=== PATIENT | male | born 2000 | race Caucasian/White ===

== ENCOUNTER 2020-06-24 17:06 | Inpatient (IN) | payer OTHER, SELFPAY ==
[2020-06-24 18:05] VITALS: BP 158/101; PULSE 113; RESP 20; TEMP 36; O2SAT 100; BMI 43.2
[2020-06-24 18:22] LABS: Glucose, Whole Blood > 600 mg/dL (60-115)
[2020-06-24 18:22] LABS: Glucose, Whole Blood > 600 mg/dL (60-115)
--- NOTE | 2020-06-24 19:16 | ED_ITS ---
HPI - General Adult General Chief complaint: General Medical Stated complaint: DIZZYNESS Time Seen by Provider: 06/24/20 19:10 Source: patient Mode of arrival: ambulatory Limitations: no limitations History of Present Illness MD complaint: high blood sugar Onset (ago): week(s) (2) Radiation: non-radiation Severity: moderate Relieving factors: none Exacerbating factors: none Associated symptoms: loss of appetite, malaise and other (polyuria, polydipsia, dry mouth, weakness, malaise, checked his BS at home 2 weeks ago with grandmother's machine 500) Related Data Home Medications Medication Instructions Recorded Confirmed No Known Home Meds 06/24/20 06/24/20 Allergies Allergy/AdvReac Type Severity Reaction Status Date / Time No Known Allergies Allergy Verified 06/24/20 21:43 Review of Systems Review of Systems: Constitutional : No Weight loss, No Fever, No Chills, pos Fatigue, pos Malaise ENT/Mouth : No sore throat, No Rhinorrhea Eyes: No Eye Pain, No Swelling, No Redness Cardiovascular : No Chest Pain, No SOB, No Dyspnea on Exertion, No Orthopnea, No Edema, No Palpitations Respiratory : No Cough, No Sputum, No Wheezing Gastrointestinal : pos Nausea, No Vomiting, No Diarrhea, No Constipation, No abdominal Pain, No Hematochezia, No Melena Genitourinary : No Dysuria, pos Urinary Frequency, No Hematuria, Musculoskeletal : No joint pain, No Myalgias, No Joint Swelling Skin : No Skin Lesions, No rash Neuro : No Weakness, No Numbness, No Dizziness, No Headache Psych : No Anxiety/Panic, No Depression Heme/Lymph: No Bruising, No Bleeding,No Lymphadenopathy Endocrine : pos Polyuria, pos Polydipsia All other systems reviewed and are negative [facility] Past Medical History Attestation statement: The following information was validated with the patient. Medical History No known health problems Social History Social History (Updated 06/24/20 @ 19:19 by Vivian Archer DO) Smoking Status: Never smoker Use of substances other than those prescribed or required for medical reasons: No Advance Directives: No Advance Directives Information Provided: No Physical Exam Vital Signs: Vital Signs: Last Vital Signs Temp 98.1 F 06/24/20 21:12 Pulse 100 06/25/20 00:31 Resp 18 06/25/20 00:31 BP 119/83 06/25/20 00:31 Pulse Ox 100 06/24/20 21:12 Body Mass Index 43.2 Appearance: Alert. Oriented X3. No acute distress. Eyes: Pupils equal, round and reactive to light. ENT: Pharynx normal. Neck: Normal inspection. Neck supple. CVS: Normal heart rate and rhythm. Pulses normal. Respiratory: No respiratory distress. Breath sounds normal. Abdomen: Soft and nontender. Back: pilonidal area 3cm draining cyst - no overlying cellulitis Skin: Skin warm and dry. Normal skin color. Normal skin turgor. Extremities: No lower extremity edema. No calf ttp Neuro: Oriented X 3. No motor deficit. No sensory deficit. Course Course Course Narrative: insulin gtt ordered given DKA will give IVF x 2L recheck chemistry in 2 hours on gtt - if cleared will admit to medicine for further management infection suspected at this time 953pm - cultures and zosyn ordered repeat chemistry ordered, on insulin gtt, given metoprolol for HTN chemistry improved, will dose with lantus and subcut insulin and take off drip AG still present hospitalist want patient to be sent to ICU will call Dr. Gipson for admission - ICU is full per [employer] [facility] [employer], patient is very close to being corrected at this time will keep in ICU x 2 more hours on drip and recheck chemistries, signed out to Dr. Jacobs Procedures Abscess I/D Site: other (pilonidal) Local Anesthetic: lidocaine 2% Amount of anesthesia used (mL): 5 Technique: needle aspiration and incised with blade Amount of fluid expressed (mL): 10 Sent for culture/gram staining?: No Irrigation: Yes Packing used?: none Medical Decision Making MDM Narrative Medical decision making narrative: 20 yo male with no PMH here with diabetic symptoms x 2 weeks, BS > 500 at home will need labs, IVF, IV insulin, also has draining uninfected appearing pilonidal cyst - will annie during visit may need labetalol given HR and BP Lab Data Result diagrams: 06/24/20 19:28 06/25/20 00:02 Labs: Lab Results 06/24/20 06/24/20 06/24/20 Range/Units 18:15 18:17 19:27 WBC (4.8-10.8) X10*3/uL RBC (4.60-5.80) X10*6/uL Hgb (14.0-18.0) g/dl Hct (42-52) % MCV (80-98) fL MCH (27.0-33.0) pg MCHC (31.0-36.0) g/dl RDW (11.0-16.0) % Plt Count (160-400) X10*3/uL MPV (9.4-12.4) fL Immature Gran % (Auto) (0.0-0.4) % Neut % (Auto) (45-73) % Lymph % (Auto) (20-40) % Foster % (Auto) (2-11) % Eos % (Auto) (0-4) % Baso % (Auto) (0-2) % Lymph # (Auto) (1.2-4.9) X10*3/uL [place] # (Auto) (0.1-1.2) X10*3/uL Eos # (Auto) (0.0-0.4) X10*3/uL Baso # (Auto) (0.0-0.2) X10*3/uL Abs Immat Gran (auto) (0.00-0.03) X10*3/uL Absolute Neuts (auto) (2.0-8.3) X10*3/uL Absolute Nucleated RBC (0.0-0.012) X10*3/uL Nucleated RBC % (auto) (0.0-0.2) /100WBC Hold Blue Top VBG pH (7.32-7.43) VBG pCO2 mmhg VBG pO2 mmhg VBG HCO3 mmol/L VBG O2 Saturation % VBG Base Excess mmol/L Sodium 129 L (135-145) mmol/L Potassium 4.6 (3.3-5.1) mmol/l Chloride 97 (96-108) mmol/L Carbon Dioxide 12 L (22-29) mmol/L Anion Gap 25 H (12-20) BUN 11 (9-16) mg/dL Creatinine 1.91 H (0.5-1.4) mg/dL Estim Creat Clear Calc 87.0 Estimated GFR 44 POC Glucose > 600 H* > 600 H* (60-115) mg/dL Random Glucose 644 H* (60-115) mg/dL Lactic Acid (0.5-2.0) mmol/L Calcium 9.4 (8.4-10.2) mg/dL Total Bilirubin 0.7 (0.0-1.0) mg/dL AST 23 (5-37) U/L ALT 40 (0-40) U/L Alkaline Phosphatase 199 H (39-117) U/L Total Protein 8.4 H (6.5-8.0) g/dL Albumin 4.9 (3.5-5.0) g/dL Lipase 12 (8-78) U/L Urine Color Urine Appearance Urine pH (5.0-8.0) Ur Specific [place] (1.005-1.025) Urine Protein (NEG-TRACE) MG/DL Urine Glucose (UA) (NEG) MG/DL Urine Ketones (NEG) MG/DL Urine Blood (NEG) Urine Nitrite (NEG) Ur Leukocyte Esterase (NEG) Urine RBC (0) /HPF Urine WBC (0-4) /HPF Ur Squamous Epith Cells /LPF Urine Bacteria /LPF Urine Test (NEGATIVE) Acetone, Qual Moderate H (Negative) COVID-19 (BRE) (Negative) COVID-19 Clin Com 06/24/20 06/24/20 06/24/20 Range/Units 19:27 19:27 19:28 WBC 9.8 (4.8-10.8) X10*3/uL RBC 5.37 (4.60-5.80) X10*6/uL Hgb 15.4 (14.0-18.0) g/dl Hct 46.0 (42-52) % MCV 85.7 (80-98) fL MCH 28.7 (27.0-33.0) pg MCHC 33.5 (31.0-36.0) g/dl RDW 13.7 (11.0-16.0) % Plt Count 297 (160-400) X10*3/uL MPV 12.1 (9.4-12.4) fL Immature Gran % (Auto) 1.5 H (0.0-0.4) % Neut % (Auto) 75.3 H (45-73) % Lymph % (Auto) 15.4 L (20-40) % Foster % (Auto) 7.3 (2-11) % Eos % (Auto) 0.2 (0-4) % Baso % (Auto) 0.3 (0-2) % Lymph # (Auto) 1.5 (1.2-4.9) X10*3/uL Foster # (Auto) 0.7 (0.1-1.2) X10*3/uL Eos # (Auto) 0.0 (0.0-0.4) X10*3/uL Baso # (Auto) 0.0 (0.0-0.2) X10*3/uL Abs Immat Gran (auto) 0.15 H (0.00-0.03) X10*3/uL Absolute Neuts (auto) 7.3 (2.0-8.3) X10*3/uL Absolute Nucleated RBC 0.000 (0.0-0.012) X10*3/uL Nucleated RBC % (auto) 0.0 (0.0-0.2) /100WBC Hold Blue Top VBG pH 7.19 L* (7.32-7.43) VBG pCO2 30 mmhg VBG pO2 76 mmhg VBG HCO3 11 mmol/L VBG O2 Saturation 93.8 % VBG Base Excess -15.3 mmol/L Sodium (135-145) mmol/L Potassium (3.3-5.1) mmol/l Chloride (96-108) mmol/L Carbon Dioxide (22-29) mmol/L Anion Gap (12-20) BUN (9-16) mg/dL Creatinine (0.5-1.4) mg/dL Estim Creat Clear Calc Estimated GFR POC Glucose (60-115) mg/dL Random Glucose (60-115) mg/dL Lactic Acid 1.7 (0.5-2.0) mmol/L Calcium (8.4-10.2) mg/dL Total Bilirubin (0.0-1.0) mg/dL AST (5-37) U/L ALT (0-40) U/L Alkaline Phosphatase (39-117) U/L Total Protein (6.5-8.0) g/dL Albumin (3.5-5.0) g/dL Lipase (8-78) U/L Urine Color Urine Appearance Urine pH (5.0-8.0) Ur Specific [place] (1.005-1.025) Urine Protein (NEG-TRACE) MG/DL Urine Glucose (UA) (NEG) MG/DL Urine Ketones (NEG) MG/DL Urine Blood (NEG) Urine Nitrite (NEG) Ur Leukocyte Esterase (NEG) Urine RBC (0) /HPF Urine WBC (0-4) /HPF Ur Squamous Epith Cells /LPF Urine Bacteria /LPF Urine Test (NEGATIVE) Acetone, Qual (Negative) COVID-19 (BRE) (Negative) COVID-19 Clin Com 06/24/20 06/24/20 06/24/20 Range/Units 19:28 19:50 20:53 WBC (4.8-10.8) X10*3/uL RBC (4.60-5.80) X10*6/uL Hgb (14.0-18.0) g/dl Hct (42-52) % MCV (80-98) fL MCH (27.0-33.0) pg MCHC (31.0-36.0) g/dl RDW (11.0-16.0) % Plt Count (160-400) X10*3/uL MPV (9.4-12.4) fL Immature Gran % (Auto) (0.0-0.4) % Neut % (Auto) (45-73) % Lymph % (Auto) (20-40) % Foster % (Auto) (2-11) % Eos % (Auto) (0-4) % Baso % (Auto) (0-2) % Lymph # (Auto) (1.2-4.9) X10*3/uL [place] # (Auto) (0.1-1.2) X10*3/uL Eos # (Auto) (0.0-0.4) X10*3/uL Baso # (Auto) (0.0-0.2) X10*3/uL Abs Immat Gran (auto) (0.00-0.03) X10*3/uL Absolute Neuts (auto) (2.0-8.3) X10*3/uL Absolute Nucleated RBC (0.0-0.012) X10*3/uL Nucleated RBC % (auto) (0.0-0.2) /100WBC Hold Blue Top SEE NOTE VBG pH (7.32-7.43) VBG pCO2 mmhg VBG pO2 mmhg VBG HCO3 mmol/L VBG O2 Saturation % VBG Base Excess mmol/L Sodium (135-145) mmol/L Potassium (3.3-5.1) mmol/l Chloride (96-108) mmol/L Carbon Dioxide (22-29) mmol/L Anion Gap (12-20) BUN (9-16) mg/dL Creatinine (0.5-1.4) mg/dL Estim Creat Clear Calc Estimated GFR POC Glucose 500 H* (60-115) mg/dL Random Glucose (60-115) mg/dL Lactic Acid (0.5-2.0) mmol/L Calcium (8.4-10.2) mg/dL Total Bilirubin (0.0-1.0) mg/dL AST (5-37) U/L ALT (0-40) U/L Alkaline Phosphatase (39-117) U/L Total Protein (6.5-8.0) g/dL Albumin (3.5-5.0) g/dL Lipase (8-78) U/L Urine Color YELLOW Urine Appearance CLEAR Urine pH 6.0 (5.0-8.0) Ur Specific [place] 1.015 (1.005-1.025) Urine Protein NEG (NEG-TRACE) MG/DL Urine Glucose (UA) >=1000 H (NEG) MG/DL Urine Ketones >=80 (NEG) MG/DL Urine Blood 1+ H (NEG) Urine Nitrite NEG (NEG) Ur Leukocyte Esterase NEG (NEG) Urine RBC 1-4 (0) /HPF Urine WBC 1-4 (0-4) /HPF Ur Squamous Epith Cells 1+ /LPF Urine Bacteria 1+ /LPF Urine Test NEGATIVE (NEGATIVE) Acetone, Qual (Negative) COVID-19 (BRE) (Negative) COVID-19 Clin Com 06/24/20 06/24/20 06/24/20 Range/Units 21:12 21:33 22:07 WBC (4.8-10.8) X10*3/uL RBC (4.60-5.80) X10*6/uL Hgb (14.0-18.0) g/dl Hct (42-52) % MCV (80-98) fL MCH (27.0-33.0) pg MCHC (31.0-36.0) g/dl RDW (11.0-16.0) % Plt Count (160-400) X10*3/uL MPV (9.4-12.4) fL Immature Gran % (Auto) (0.0-0.4) % Neut % (Auto) (45-73) % Lymph % (Auto) (20-40) % Foster % (Auto) (2-11) % Eos % (Auto) (0-4) % Baso % (Auto) (0-2) % Lymph # (Auto) (1.2-4.9) X10*3/uL [place] # (Auto) (0.1-1.2) X10*3/uL Eos # (Auto) (0.0-0.4) X10*3/uL Baso # (Auto) (0.0-0.2) X10*3/uL Abs Immat Gran (auto) (0.00-0.03) X10*3/uL Absolute Neuts (auto) (2.0-8.3) X10*3/uL Absolute Nucleated RBC (0.0-0.012) X10*3/uL Nucleated RBC % (auto) (0.0-0.2) /100WBC Hold Blue Top VBG pH (7.32-7.43) VBG pCO2 mmhg VBG pO2 mmhg VBG HCO3 mmol/L VBG O2 Saturation % VBG Base Excess mmol/L Sodium (135-145) mmol/L Potassium (3.3-5.1) mmol/l Chloride (96-108) mmol/L Carbon Dioxide (22-29) mmol/L Anion Gap (12-20) BUN (9-16) mg/dL Creatinine (0.5-1.4) mg/dL Estim Creat Clear Calc Estimated GFR POC Glucose 429 H* 355 H* (60-115) mg/dL Random Glucose (60-115) mg/dL Lactic Acid (0.5-2.0) mmol/L Calcium (8.4-10.2) mg/dL Total Bilirubin (0.0-1.0) mg/dL AST (5-37) U/L ALT (0-40) U/L Alkaline Phosphatase (39-117) U/L Total Protein (6.5-8.0) g/dL Albumin (3.5-5.0) g/dL Lipase (8-78) U/L Urine Color Urine Appearance Urine pH (5.0-8.0) Ur Specific [place] (1.005-1.025) Urine Protein (NEG-TRACE) MG/DL Urine Glucose (UA) (NEG) MG/DL Urine Ketones (NEG) MG/DL Urine Blood (NEG) Urine Nitrite (NEG) Ur Leukocyte Esterase (NEG) Urine RBC (0) /HPF Urine WBC (0-4) /HPF Ur Squamous Epith Cells /LPF Urine Bacteria /LPF Urine Test (NEGATIVE) Acetone, Qual (Negative) COVID-19 (BRE) Negative (Negative) COVID-19 Clin Com See Note 06/24/20 06/24/20 06/24/20 Range/Units 22:35 23:04 23:37 WBC (4.8-10.8) X10*3/uL RBC (4.60-5.80) X10*6/uL Hgb (14.0-18.0) g/dl Hct (42-52) % MCV (80-98) fL MCH (27.0-33.0) pg MCHC (31.0-36.0) g/dl RDW (11.0-16.0) % Plt Count (160-400) X10*3/uL MPV (9.4-12.4) fL Immature Gran % (Auto) (0.0-0.4) % Neut % (Auto) (45-73) % Lymph % (Auto) (20-40) % Foster % (Auto) (2-11) % Eos % (Auto) (0-4) % Baso % (Auto) (0-2) % Lymph # (Auto) (1.2-4.9) X10*3/uL [place] # (Auto) (0.1-1.2) X10*3/uL Eos # (Auto) (0.0-0.4) X10*3/uL Baso # (Auto) (0.0-0.2) X10*3/uL Abs Immat Gran (auto) (0.00-0.03) X10*3/uL Absolute Neuts (auto) (2.0-8.3) X10*3/uL Absolute Nucleated RBC (0.0-0.012) X10*3/uL Nucleated RBC % (auto) (0.0-0.2) /100WBC Hold Blue Top VBG pH (7.32-7.43) VBG pCO2 mmhg VBG pO2 mmhg VBG HCO3 mmol/L VBG O2 Saturation % VBG Base Excess mmol/L Sodium (135-145) mmol/L Potassium (3.3-5.1) mmol/l Chloride (96-108) mmol/L Carbon Dioxide (22-29) mmol/L Anion Gap (12-20) BUN (9-16) mg/dL Creatinine (0.5-1.4) mg/dL Estim Creat Clear Calc Estimated GFR POC Glucose 286 H 289 H 272 H (60-115) mg/dL Random Glucose (60-115) mg/dL Lactic Acid (0.5-2.0) mmol/L Calcium (8.4-10.2) mg/dL Total Bilirubin (0.0-1.0) mg/dL AST (5-37) U/L ALT (0-40) U/L Alkaline Phosphatase (39-117) U/L Total Protein (6.5-8.0) g/dL Albumin (3.5-5.0) g/dL Lipase (8-78) U/L Urine Color Urine Appearance Urine pH (5.0-8.0) Ur Specific [place] (1.005-1.025) Urine Protein (NEG-TRACE) MG/DL Urine Glucose (UA) (NEG) MG/DL Urine Ketones (NEG) MG/DL Urine Blood (NEG) Urine Nitrite (NEG) Ur Leukocyte Esterase (NEG) Urine RBC (0) /HPF Urine WBC (0-4) /HPF Ur Squamous Epith Cells /LPF Urine Bacteria /LPF Urine Test (NEGATIVE) Acetone, Qual (Negative) COVID-19 (BRE) (Negative) COVID-19 Clin Com 06/25/20 Range/Units 00:02 WBC (4.8-10.8) X10*3/uL RBC (4.60-5.80) X10*6/uL Hgb (14.0-18.0) g/dl Hct (42-52) % MCV (80-98) fL MCH (27.0-33.0) pg MCHC (31.0-36.0) g/dl RDW (11.0-16.0) % Plt Count (160-400) X10*3/uL MPV (9.4-12.4) fL Immature Gran % (Auto) (0.0-0.4) % Neut % (Auto) (45-73) % Lymph % (Auto) (20-40) % Foster % (Auto) (2-11) % Eos % (Auto) (0-4) % Baso % (Auto) (0-2) % Lymph # (Auto) (1.2-4.9) X10*3/uL [place] # (Auto) (0.1-1.2) X10*3/uL Eos # (Auto) (0.0-0.4) X10*3/uL Baso # (Auto) (0.0-0.2) X10*3/uL Abs Immat Gran (auto) (0.00-0.03) X10*3/uL Absolute Neuts (auto) (2.0-8.3) X10*3/uL Absolute Nucleated RBC (0.0-0.012) X10*3/uL Nucleated RBC % (auto) (0.0-0.2) /100WBC Hold Blue Top VBG pH (7.32-7.43) VBG pCO2 mmhg VBG pO2 mmhg VBG HCO3 mmol/L VBG O2 Saturation % VBG Base Excess mmol/L Sodium 137 (135-145) mmol/L Potassium 4.0 (3.3-5.1) mmol/l Chloride 105 (96-108) mmol/L Carbon Dioxide 14 L (22-29) mmol/L Anion Gap 22 H (12-20) BUN 9 (9-16) mg/dL Creatinine 1.57 H (0.5-1.4) mg/dL Estim Creat Clear Calc 105.8 Estimated GFR 56 POC Glucose (60-115) mg/dL Random Glucose 329 H D (60-115) mg/dL Lactic Acid (0.5-2.0) mmol/L Calcium 8.8 D (8.4-10.2) mg/dL Total Bilirubin (0.0-1.0) mg/dL AST (5-37) U/L ALT (0-40) U/L Alkaline Phosphatase (39-117) U/L Total Protein (6.5-8.0) g/dL Albumin (3.5-5.0) g/dL Lipase (8-78) U/L Urine Color Urine Appearance Urine pH (5.0-8.0) Ur Specific [place] (1.005-1.025) Urine Protein (NEG-TRACE) MG/DL Urine Glucose (UA) (NEG) MG/DL Urine Ketones (NEG) MG/DL Urine Blood (NEG) Urine Nitrite (NEG) Ur Leukocyte Esterase (NEG) Urine RBC (0) /HPF Urine WBC (0-4) /HPF Ur Squamous Epith Cells /LPF Urine Bacteria /LPF Urine Test (NEGATIVE) Acetone, Qual (Negative) COVID-19 (BRE) (Negative) COVID-19 Clin Com ECG Data Attestation: I personally reviewed and interpreted this ECG as follows: Interpretation: Rate: 121 Rhythm: sinus tachycardia [place]: normal Normal P waves. Normal KIAN. Normal QRS complex. ST T wave : nonspecific qTC: normal prior studies: no acute ischemia The study has been interpreted contemporaneously by me. . Critical Care Time Critical Care Time Critical Care Time: Yes Total Critical Care Time: 60 Attestation: insulin gtt, recheck labs I attest to this time spent taking care of the patient Discharge Plan Discharge Clinical Impression: Infected pilonidal cyst Acute renal failure Qualifiers: Acute renal failure type: unspecified Qualified Code(s): N17.9 - Acute kidney failure, unspecified DKA (diabetic ketoacidoses) Qualifiers: Diabetes mellitus type: type 2 Diabetes mellitus complication detail: without coma Qualified Code(s): E11.10 - Type 2 diabetes mellitus with ketoacidosis without coma Hypertension Qualifiers: Hypertension type: unspecified Qualified Code(s): I10 - Essential (primary) hypertension Patient Disposition: Admitted As Inpatient
[2020-06-24 19:36] LABS: MANUAL DIFF FLAG NO
[2020-06-24 19:37] LABS: Basophils Percent Auto 0.3 % (0-2); Eosinophils Percent Auto 0.2 % (0-4); Hemoglobin 15.4 g/dl (14.0-18.0); Imm Gran Abs Auto 0.15 X10*3/uL (0.00-0.03); Imm Gran Pct Auto 1.5 % (0.0-0.4); Lymphocytes Absolute Auto 1.5 X10*3/uL (1.2-4.9); Lymphocytes Percent Auto 15.4 % (20-40); Mean Corpuscular HGB Conc 33.5 g/dl (31.0-36.0); Mean Corpuscular Hemoglobin 28.7 pg (27.0-33.0); Mean Corpuscular Volume 85.7 fL (80-98); Mean Platelet Volume 12.1 fL (9.4-12.4); Monocytes Absolute Auto 0.7 X10*3/uL (0.1-1.2); Monocytes Percent Auto 7.3 % (2-11); Neutrophils Absolute Auto 7.3 X10*3/uL (2.0-8.3); Neutrophils Percent Auto 75.3 % (45-73); Platelet Count 297 X10*3/uL (160-400); Red Blood Count 5.37 X10*6/uL (4.60-5.80); Red Cell Distribution Width 13.7 % (11.0-16.0); White Blood Count 9.8 X10*3/uL (4.8-10.8)
[2020-06-24 19:39] LABS: Base Excess VBG -15.3 mmol/L; HCO3 VBG 11 mmol/L; Oxygen Saturation VBG 93.8 %; PCO2 VBG 30 mmhg; PO2 VBG 76 mmhg
[2020-06-24 19:40] LABS: Blood Gas Serial # 5396
[2020-06-24 19:42] LABS: pH VBG 7.19 (7.32-7.43)
[2020-06-24 19:47] VITALS: BP 157/101; PULSE 120; RESP 16; TEMP 36.9; O2SAT 97
[2020-06-24 20:02] LABS: Glucose Urine UA >=1000 MG/DL (NEG); Leukocyte Esterase Urine NEG (NEG); Nitrite Urine NEG (NEG); Specific Gravity - Urine 1.015 (1.005-1.025); Urine Blood 1+ (NEG); Urine Ketones >=80 MG/DL (NEG); Urine Protein NEG (NEG-TRACE)
[2020-06-24 20:03] LABS: Appearance Urine CLEAR; Color Urine YELLOW
[2020-06-24 20:04] LABS: Lactic Acid 1.7 mmol/L (0.5-2.0)
[2020-06-24] MEDS: 0.9 % Sodium Chloride 1,000 ML 999 ML IVCONT ×3 (20:09→21:05)
[2020-06-24 20:11] LABS: UPreg QC Valid YES; Urine Pregnancy NEGATIVE (NEGATIVE)
[2020-06-24 20:19] LABS: Bacteria Urine 1+ /LPF; Squamous Epithelial Cell Urine 1+ /LPF
[2020-06-24 20:29] LABS: Alanine Aminotransferase 40 U/L (0-40); Albumin Level 4.9 g/dL (3.5-5.0); Alkaline Phosphatase 199 U/L (39-117); Anion Gap 25 (12-20); Aspartate Amino Transferase 23 U/L (5-37); Bilirubin Total 0.7 mg/dL (0.0-1.0); Blood Urea Nitrogen 11 mg/dL (9-16); Calcium 9.4 mg/dL (8.4-10.2); Carbon Dioxide 12 mmol/L (22-29); Chloride 97 mmol/L (96-108); Estimated Glomerular Filt Rate 44; Glucose Random 644 mg/dL (60-115); Lipase 12 U/L (8-78); Potassium 4.6 mmol/l (3.3-5.1); Sodium 129 mmol/L (135-145); Total Protein 8.4 g/dL (6.5-8.0)
[2020-06-24] MEDS: Insulin Regular, Human 100 UNIT/ML 3 ML VIAL 10 UNIT IVPUSH (20:32)
--- NOTE | 2020-06-24 20:41 | ECG_ITS ---
Test Reason : HYPERGLYCEMIA' Blood Pressure : / mmHG Vent. Rate : 121 BPM Atrial Rate : 121 BPM P-R Int : 158 ms QRS Dur : 084 ms QT Int : 308 ms P-R-T Axes : 064 049 004 degrees QTc Int : 437 ms Sinus tachycardia Nonspecific ST and T wave abnormality Abnormal ECG No previous ECGs available Referred By: Vivian Archer Electronically Signed By:BHAVANI ROJO MD
[2020-06-24 20:50] LABS: Acetone, serum QL Moderate (Negative)
[2020-06-24] MEDS: Insulin Regular/NS 100 UNIT/100 ML PLAST..BAG 10 UNIT IVCONT (21:00)
--- NOTE | 2020-06-24 21:02 | PC.NURSE ---
POC 500 mg/dl. Insulin drip started per MD request @ 10 units/hr. Unable to scan insulin into MAR, charge master coordinator aware.
[2020-06-24 21:12] VITALS: BP 162/102; PULSE 124; RESP 24; TEMP 36.7; O2SAT 100
[2020-06-24 21:38] VITALS: BP 162/102; PULSE 123
[2020-06-24] MEDS: Metoprolol Tartrate 25 MG TABLET PO (21:38)
--- NOTE | 2020-06-24 21:39 | PC.NURSE ---
Pt medicated per EMAR with Metoprolol. Per MD to decreased insulin to 5 units/hr. Med Rec completed with pt, per pt, no home meds noted.
[2020-06-24 21:55] LABS: Glucose, Whole Blood 429 mg/dL (60-115)
[2020-06-24 21:55] LABS: Glucose, Whole Blood 500 mg/dL (60-115)
[2020-06-24 21:59] LABS: COVID-19 Test Negative (Negative)
[2020-06-24 22:12] LABS: Glucose, Whole Blood 355 mg/dL (60-115)
[2020-06-24] MEDS: Lidocaine 4 % Cream KIT 1 APPL TOPICAL (22:16)
[2020-06-24] MEDS: Piperacillin Sodium/Tazobactam 3.375 GM in 0.9 % Sodium Chloride 50 ML IV (22:34)
--- NOTE | 2020-06-24 22:35 | PC.NURSE ---
[place] le[place], BCX drawn previously. POC 286 mg/dl. Pt resting comfortably, talking on phone in NAD.
--- NOTE | 2020-06-24 22:41 | PC.NURSE ---
Pt suddenly vomiting multiple times, medicated with Zofran. MD at bedside, verbal order to decrease Insulin drip to 2.5 units/hr. VSS. Continue to monitor.
[2020-06-24 22:42] VITALS: BP 131/97; PULSE 126; RESP 20
[2020-06-24] MEDS: ondansetron HCL 4 MG/2 ML VIAL IVPUSH (22:46)
--- NOTE | 2020-06-24 23:38 | PC.NURSE ---
at bedside of I&D of cyst.
--- NOTE | 2020-06-24 23:39 | PC.NURSE ---
Lido 1% not given as it was not loaded in pyxis. Verbal order by MD for Lido 2% to be used for I&D.
[2020-06-25] VITALS (10 sets, daily range): BP systolic 115–151; BP diastolic 58–87; PULSE 82–114; RESP 14–20; TEMP 36.2–36.9; O2SAT 96–100
--- NOTE | 2020-06-25 00:05 | PC.NURSE ---
POC increased to 301, per MD to increase the insulin drip to 5 units/hr.
--- NOTE | 2020-06-25 00:06 | PC.NURSE ---
Repeat chemistry obtained and sent as it was not obtained previously.
[2020-06-25 00:09] LABS: Glucose, Whole Blood 289 mg/dL (60-115)
[2020-06-25 00:09] LABS: Glucose, Whole Blood 272 mg/dL (60-115)
[2020-06-25 00:09] LABS: Glucose, Whole Blood 286 mg/dL (60-115)
[2020-06-25 01:01] LABS: Anion Gap 22 (12-20); Blood Urea Nitrogen 9 mg/dL (9-16); Calcium 8.8 mg/dL (8.4-10.2); Carbon Dioxide 14 mmol/L (22-29); Chloride 105 mmol/L (96-108); Creatinine Clr Calc Pharmacy 105.8; Estimated Glomerular Filt Rate 56; Glucose Random 329 mg/dL (60-115); Sodium 137 mmol/L (135-145)
--- NOTE | 2020-06-25 01:16 | PC.NURSE ---
POC 287 mg/dl. Per MD melia LOVELL drip. Pt aware of plan for SC insulin, awaiting bed assignment.
[2020-06-25] MEDS: Insulin Lispro 100 UNIT/ML 3 ML VIAL SUBCUT ×4 (01:20→21:24)
[2020-06-25] MEDS: Insulin Glargine,Hum.rec.anlog 100 UNIT/ML 10 ML VIAL 20 UNIT SUBCUT (01:20)
--- NOTE | 2020-06-25 01:22 | PC.NURSE ---
Pt medicated with Insulin per EMAR.
--- NOTE | 2020-06-25 01:26 | PC.NURSE ---
Per MD to restart Insulin drip @ 2.5 u/hr. Pt unable to go to [facility] due to gap. Per MD, plan for ICU. Pt resting in bed, denies pain/discomfort. Continue to monitor.
[2020-06-25] MEDS: 0.9 % Sodium Chloride 1,000 ML 999 ML IVCONT (01:37)
--- NOTE | 2020-06-25 01:38 | PC.NURSE ---
IVF infusing per EMAR. echocardiography tech to obtain VBG.
[2020-06-25 02:01] LABS: Glucose, Whole Blood 287 mg/dL (60-115)
[2020-06-25 02:01] LABS: Glucose, Whole Blood 301 mg/dL (60-115)
[2020-06-25 02:01] LABS: Glucose, Whole Blood 292 mg/dL (60-115)
[2020-06-25 02:01] LABS: Glucose, Whole Blood 247 mg/dL (60-115)
[2020-06-25 02:15] LABS: PCO2 VBG 30 mmhg; PO2 VBG 104 mmhg
[2020-06-25 02:16] LABS: Base Excess VBG -10.8 mmol/L; HCO3 VBG 14 mmol/L; Oxygen Saturation VBG 97.8 %
[2020-06-25] MEDS: Dextrose 5 % and 0.45 % NaCl 1,000 ML 100 ML IVCONT (02:20)
--- NOTE | 2020-06-25 02:22 | PC.NURSE ---
D51/2 NS hung per EMAR. Pt aware of plan to redraw labs at 0320.
[2020-06-25 02:28] LABS: Glucose, Whole Blood 258 mg/dL (60-115)
[2020-06-25 03:10] LABS: Glucose, Whole Blood 231 mg/dL (60-115)
--- NOTE | 2020-06-25 03:21 | PC.NURSE ---
technology methodology consultant at bedside to obtain repeat bloodwork.
[2020-06-25 03:34] LABS: Base Excess VBG -10.5 mmol/L; HCO3 VBG 14 mmol/L; Oxygen Saturation VBG 96.1 %; PCO2 VBG 30 mmhg; PO2 VBG 83 mmhg
--- NOTE | 2020-06-25 03:51 | PC.NURSE ---
Insulin drip DCed per verbal order by MD as it had been 2 hours since Lantus was administered. Repeat POC 247 mg/dl. MD aware. Pt ambulatory in the halls with a mandujano/steady gait. Nnoadherent dressing applied to pilonidal cyst. Continue to monitor.
[2020-06-25 03:58] LABS: Anion Gap 19 (12-20); Blood Urea Nitrogen 8 mg/dL (9-16); Calcium 8.8 mg/dL (8.4-10.2); Carbon Dioxide 14 mmol/L (22-29); Chloride 106 mmol/L (96-108); Estimated Glomerular Filt Rate > 60; Glucose Random 240 mg/dL (60-115); Potassium 3.8 mmol/l (3.3-5.1); Sodium 135 mmol/L (135-145)
--- NOTE | 2020-06-25 04:25 | ED_ITS ---
HPI - General Adult General Chief complaint: General Medical Stated complaint: DIZZYNESS Time Seen by Provider: 06/24/20 19:10 Source: patient Mode of arrival: ambulatory Limitations: no limitations History of Present Illness Relieving factors: none Exacerbating factors: none Associated symptoms: loss of appetite, malaise and other (polyuria, polydipsia, dry mouth, weakness, malaise, checked his BS at home 2 weeks ago with grandmother's machine 500) Related Data Home Medications Medication Instructions Recorded Confirmed No Known Home Meds 06/24/20 06/24/20 Allergies Allergy/AdvReac Type Severity Reaction Status Date / Time No Known Allergies Allergy Verified 06/24/20 21:43 [facility] Past Medical History Medical History No known health problems Social History Social History (Updated 06/24/20 @ 19:19 by Vivian Archer DO) Smoking Status: Never smoker Use of substances other than those prescribed or required for medical reasons: No Advance Directives: No Advance Directives Information Provided: No Physical Exam Vital Signs: Vital Signs: Last Vital Signs Temp 98.0 F 06/25/20 01:55 Pulse 97 06/25/20 01:55 Resp 18 06/25/20 01:55 BP 137/87 06/25/20 01:55 Pulse Ox 98 06/25/20 01:55 Body Mass Index 43.2 Medical Decision Making MDM Narrative Medical decision making narrative: Patient signed out to me. 20-year-old male with new onset diabetes. Diagnosed with DKA. Patient was started and maintained on insulin drip. Throughout ER stay were able to close his gap and. IV insulin drip. Patient to be admitted for further evaluation Lab Data Result diagrams: 06/24/20 19:28 06/25/20 03:23 Labs: Lab Results 06/24/20 06/24/20 06/24/20 Range/Units 18:15 18:17 19:27 WBC (4.8-10.8) X10*3/uL RBC (4.60-5.80) X10*6/uL Hgb (14.0-18.0) g/dl Hct (42-52) % MCV (80-98) fL MCH (27.0-33.0) pg MCHC (31.0-36.0) g/dl RDW (11.0-16.0) % Plt Count (160-400) X10*3/uL MPV (9.4-12.4) fL Immature Gran % (Auto) (0.0-0.4) % Neut % (Auto) (45-73) % Lymph % (Auto) (20-40) % [place] % (Auto) (2-11) % Eos % (Auto) (0-4) % Baso % (Auto) (0-2) % Lymph # (Auto) (1.2-4.9) X10*3/uL [place] # (Auto) (0.1-1.2) X10*3/uL Eos # (Auto) (0.0-0.4) X10*3/uL Baso # (Auto) (0.0-0.2) X10*3/uL Abs Immat Gran (auto) (0.00-0.03) X10*3/uL Absolute Neuts (auto) (2.0-8.3) X10*3/uL Absolute Nucleated RBC (0.0-0.012) X10*3/uL Nucleated RBC % (auto) (0.0-0.2) /100WBC Hold Blue Top VBG pH (7.32-7.43) VBG pCO2 mmhg VBG pO2 mmhg VBG HCO3 mmol/L VBG O2 Saturation % VBG Base Excess mmol/L Sodium 129 L (135-145) mmol/L Potassium 4.6 (3.3-5.1) mmol/l Chloride 97 (96-108) mmol/L Carbon Dioxide 12 L (22-29) mmol/L Anion Gap 25 H (12-20) BUN 11 (9-16) mg/dL Creatinine 1.91 H (0.5-1.4) mg/dL Estim Creat Clear Calc 87.0 Estimated GFR 44 POC Glucose > 600 H* > 600 H* (60-115) mg/dL Random Glucose 644 H* (60-115) mg/dL Lactic Acid (0.5-2.0) mmol/L Calcium 9.4 (8.4-10.2) mg/dL Total Bilirubin 0.7 (0.0-1.0) mg/dL AST 23 (5-37) U/L ALT 40 (0-40) U/L Alkaline Phosphatase 199 H (39-117) U/L Total Protein 8.4 H (6.5-8.0) g/dL Albumin 4.9 (3.5-5.0) g/dL Lipase 12 (8-78) U/L Urine Color Urine Appearance Urine pH (5.0-8.0) Ur Specific [place] (1.005-1.025) Urine Protein (NEG-TRACE) MG/DL Urine Glucose (UA) (NEG) MG/DL Urine Ketones (NEG) MG/DL Urine Blood (NEG) Urine Nitrite (NEG) Ur Leukocyte Esterase (NEG) Urine RBC (0) /HPF Urine WBC (0-4) /HPF Ur Squamous Epith Cells /LPF Urine Bacteria /LPF Urine Test (NEGATIVE) Acetone, Qual Moderate H (Negative) COVID-19 (BRE) (Negative) COVID-19 Clin Com 06/24/20 06/24/20 06/24/20 Range/Units 19:27 19:27 19:28 WBC 9.8 (4.8-10.8) X10*3/uL RBC 5.37 (4.60-5.80) X10*6/uL Hgb 15.4 (14.0-18.0) g/dl Hct 46.0 (42-52) % MCV 85.7 (80-98) fL MCH 28.7 (27.0-33.0) pg MCHC 33.5 (31.0-36.0) g/dl RDW 13.7 (11.0-16.0) % Plt Count 297 (160-400) X10*3/uL MPV 12.1 (9.4-12.4) fL Immature Gran % (Auto) 1.5 H (0.0-0.4) % Neut % (Auto) 75.3 H (45-73) % Lymph % (Auto) 15.4 L (20-40) % [place] % (Auto) 7.3 (2-11) % Eos % (Auto) 0.2 (0-4) % Baso % (Auto) 0.3 (0-2) % Lymph # (Auto) 1.5 (1.2-4.9) X10*3/uL [place] # (Auto) 0.7 (0.1-1.2) X10*3/uL Eos # (Auto) 0.0 (0.0-0.4) X10*3/uL Baso # (Auto) 0.0 (0.0-0.2) X10*3/uL Abs Immat Gran (auto) 0.15 H (0.00-0.03) X10*3/uL Absolute Neuts (auto) 7.3 (2.0-8.3) X10*3/uL Absolute Nucleated RBC 0.000 (0.0-0.012) X10*3/uL Nucleated RBC % (auto) 0.0 (0.0-0.2) /100WBC Hold Blue Top VBG pH 7.19 L* (7.32-7.43) VBG pCO2 30 mmhg VBG pO2 76 mmhg VBG HCO3 11 mmol/L VBG O2 Saturation 93.8 % VBG Base Excess -15.3 mmol/L Sodium (135-145) mmol/L Potassium (3.3-5.1) mmol/l Chloride (96-108) mmol/L Carbon Dioxide (22-29) mmol/L Anion Gap (12-20) BUN (9-16) mg/dL Creatinine (0.5-1.4) mg/dL Estim Creat Clear Calc Estimated GFR POC Glucose (60-115) mg/dL Random Glucose (60-115) mg/dL Lactic Acid 1.7 (0.5-2.0) mmol/L Calcium (8.4-10.2) mg/dL Total Bilirubin (0.0-1.0) mg/dL AST (5-37) U/L ALT (0-40) U/L Alkaline Phosphatase (39-117) U/L Total Protein (6.5-8.0) g/dL Albumin (3.5-5.0) g/dL Lipase (8-78) U/L Urine Color Urine Appearance Urine pH (5.0-8.0) Ur Specific [place] (1.005-1.025) Urine Protein (NEG-TRACE) MG/DL Urine Glucose (UA) (NEG) MG/DL Urine Ketones (NEG) MG/DL Urine Blood (NEG) Urine Nitrite (NEG) Ur Leukocyte Esterase (NEG) Urine RBC (0) /HPF Urine WBC (0-4) /HPF Ur Squamous Epith Cells /LPF Urine Bacteria /LPF Urine Test (NEGATIVE) Acetone, Qual (Negative) COVID-19 (BRE) (Negative) COVID-19 Clin Com 06/24/20 06/24/20 06/24/20 Range/Units 19:28 19:50 20:53 WBC (4.8-10.8) X10*3/uL RBC (4.60-5.80) X10*6/uL Hgb (14.0-18.0) g/dl Hct (42-52) % MCV (80-98) fL MCH (27.0-33.0) pg MCHC (31.0-36.0) g/dl RDW (11.0-16.0) % Plt Count (160-400) X10*3/uL MPV (9.4-12.4) fL Immature Gran % (Auto) (0.0-0.4) % Neut % (Auto) (45-73) % Lymph % (Auto) (20-40) % [place] % (Auto) (2-11) % Eos % (Auto) (0-4) % Baso % (Auto) (0-2) % Lymph # (Auto) (1.2-4.9) X10*3/uL [place] # (Auto) (0.1-1.2) X10*3/uL Eos # (Auto) (0.0-0.4) X10*3/uL Baso # (Auto) (0.0-0.2) X10*3/uL Abs Immat Gran (auto) (0.00-0.03) X10*3/uL Absolute Neuts (auto) (2.0-8.3) X10*3/uL Absolute Nucleated RBC (0.0-0.012) X10*3/uL Nucleated RBC % (auto) (0.0-0.2) /100WBC Hold Blue Top SEE NOTE VBG pH (7.32-7.43) VBG pCO2 mmhg VBG pO2 mmhg VBG HCO3 mmol/L VBG O2 Saturation % VBG Base Excess mmol/L Sodium (135-145) mmol/L Potassium (3.3-5.1) mmol/l Chloride (96-108) mmol/L Carbon Dioxide (22-29) mmol/L Anion Gap (12-20) BUN (9-16) mg/dL Creatinine (0.5-1.4) mg/dL Estim Creat Clear Calc Estimated GFR POC Glucose 500 H* (60-115) mg/dL Random Glucose (60-115) mg/dL Lactic Acid (0.5-2.0) mmol/L Calcium (8.4-10.2) mg/dL Total Bilirubin (0.0-1.0) mg/dL AST (5-37) U/L ALT (0-40) U/L Alkaline Phosphatase (39-117) U/L Total Protein (6.5-8.0) g/dL Albumin (3.5-5.0) g/dL Lipase (8-78) U/L Urine Color YELLOW Urine Appearance CLEAR Urine pH 6.0 (5.0-8.0) Ur Specific [place] 1.015 (1.005-1.025) Urine Protein NEG (NEG-TRACE) MG/DL Urine Glucose (UA) >=1000 H (NEG) MG/DL Urine Ketones >=80 (NEG) MG/DL Urine Blood 1+ H (NEG) Urine Nitrite NEG (NEG) Ur Leukocyte Esterase NEG (NEG) Urine RBC 1-4 (0) /HPF Urine WBC 1-4 (0-4) /HPF Ur Squamous Epith Cells 1+ /LPF Urine Bacteria 1+ /LPF Urine Test NEGATIVE (NEGATIVE) Acetone, Qual (Negative) COVID-19 (BRE) (Negative) COVID-19 Clin Com 06/24/20 06/24/20 06/24/20 Range/Units 21:12 21:33 22:07 WBC (4.8-10.8) X10*3/uL RBC (4.60-5.80) X10*6/uL Hgb (14.0-18.0) g/dl Hct (42-52) % MCV (80-98) fL MCH (27.0-33.0) pg MCHC (31.0-36.0) g/dl RDW (11.0-16.0) % Plt Count (160-400) X10*3/uL MPV (9.4-12.4) fL Immature Gran % (Auto) (0.0-0.4) % Neut % (Auto) (45-73) % Lymph % (Auto) (20-40) % [place] % (Auto) (2-11) % Eos % (Auto) (0-4) % Baso % (Auto) (0-2) % Lymph # (Auto) (1.2-4.9) X10*3/uL [place] # (Auto) (0.1-1.2) X10*3/uL Eos # (Auto) (0.0-0.4) X10*3/uL Baso # (Auto) (0.0-0.2) X10*3/uL Abs Immat Gran (auto) (0.00-0.03) X10*3/uL Absolute Neuts (auto) (2.0-8.3) X10*3/uL Absolute Nucleated RBC (0.0-0.012) X10*3/uL Nucleated RBC % (auto) (0.0-0.2) /100WBC Hold Blue Top VBG pH (7.32-7.43) VBG pCO2 mmhg VBG pO2 mmhg VBG HCO3 mmol/L VBG O2 Saturation % VBG Base Excess mmol/L Sodium (135-145) mmol/L Potassium (3.3-5.1) mmol/l Chloride (96-108) mmol/L Carbon Dioxide (22-29) mmol/L Anion Gap (12-20) BUN (9-16) mg/dL Creatinine (0.5-1.4) mg/dL Estim Creat Clear Calc Estimated GFR POC Glucose 429 H* 355 H* (60-115) mg/dL Random Glucose (60-115) mg/dL Lactic Acid (0.5-2.0) mmol/L Calcium (8.4-10.2) mg/dL Total Bilirubin (0.0-1.0) mg/dL AST (5-37) U/L ALT (0-40) U/L Alkaline Phosphatase (39-117) U/L Total Protein (6.5-8.0) g/dL Albumin (3.5-5.0) g/dL Lipase (8-78) U/L Urine Color Urine Appearance Urine pH (5.0-8.0) Ur Specific [place] (1.005-1.025) Urine Protein (NEG-TRACE) MG/DL Urine Glucose (UA) (NEG) MG/DL Urine Ketones (NEG) MG/DL Urine Blood (NEG) Urine Nitrite (NEG) Ur Leukocyte Esterase (NEG) Urine RBC (0) /HPF Urine WBC (0-4) /HPF Ur Squamous Epith Cells /LPF Urine Bacteria /LPF Urine Test (NEGATIVE) Acetone, Qual (Negative) COVID-19 (BRE) Negative (Negative) COVID-19 Clin Com See Note 06/24/20 06/24/20 06/24/20 Range/Units 22:35 23:04 23:37 WBC (4.8-10.8) X10*3/uL RBC (4.60-5.80) X10*6/uL Hgb (14.0-18.0) g/dl Hct (42-52) % MCV (80-98) fL MCH (27.0-33.0) pg MCHC (31.0-36.0) g/dl RDW (11.0-16.0) % Plt Count (160-400) X10*3/uL MPV (9.4-12.4) fL Immature Gran % (Auto) (0.0-0.4) % Neut % (Auto) (45-73) % Lymph % (Auto) (20-40) % [place] % (Auto) (2-11) % Eos % (Auto) (0-4) % Baso % (Auto) (0-2) % Lymph # (Auto) (1.2-4.9) X10*3/uL [place] # (Auto) (0.1-1.2) X10*3/uL Eos # (Auto) (0.0-0.4) X10*3/uL Baso # (Auto) (0.0-0.2) X10*3/uL Abs Immat Gran (auto) (0.00-0.03) X10*3/uL Absolute Neuts (auto) (2.0-8.3) X10*3/uL Absolute Nucleated RBC (0.0-0.012) X10*3/uL Nucleated RBC % (auto) (0.0-0.2) /100WBC Hold Blue Top VBG pH (7.32-7.43) VBG pCO2 mmhg VBG pO2 mmhg VBG HCO3 mmol/L VBG O2 Saturation % VBG Base Excess mmol/L Sodium (135-145) mmol/L Potassium (3.3-5.1) mmol/l Chloride (96-108) mmol/L Carbon Dioxide (22-29) mmol/L Anion Gap (12-20) BUN (9-16) mg/dL Creatinine (0.5-1.4) mg/dL Estim Creat Clear Calc Estimated GFR POC Glucose 286 H 289 H 272 H (60-115) mg/dL Random Glucose (60-115) mg/dL Lactic Acid (0.5-2.0) mmol/L Calcium (8.4-10.2) mg/dL Total Bilirubin (0.0-1.0) mg/dL AST (5-37) U/L ALT (0-40) U/L Alkaline Phosphatase (39-117) U/L Total Protein (6.5-8.0) g/dL Albumin (3.5-5.0) g/dL Lipase (8-78) U/L Urine Color Urine Appearance Urine pH (5.0-8.0) Ur Specific [place] (1.005-1.025) Urine Protein (NEG-TRACE) MG/DL Urine Glucose (UA) (NEG) MG/DL Urine Ketones (NEG) MG/DL Urine Blood (NEG) Urine Nitrite (NEG) Ur Leukocyte Esterase (NEG) Urine RBC (0) /HPF Urine WBC (0-4) /HPF Ur Squamous Epith Cells /LPF Urine Bacteria /LPF Urine Test (NEGATIVE) Acetone, Qual (Negative) COVID-19 (BRE) (Negative) COVID-19 Clin Com 06/25/20 06/25/20 06/25/20 Range/Units 00:02 00:06 00:32 WBC (4.8-10.8) X10*3/uL RBC (4.60-5.80) X10*6/uL Hgb (14.0-18.0) g/dl Hct (42-52) % MCV (80-98) fL MCH (27.0-33.0) pg MCHC (31.0-36.0) g/dl RDW (11.0-16.0) % Plt Count (160-400) X10*3/uL MPV (9.4-12.4) fL Immature Gran % (Auto) (0.0-0.4) % Neut % (Auto) (45-73) % Lymph % (Auto) (20-40) % [place] % (Auto) (2-11) % Eos % (Auto) (0-4) % Baso % (Auto) (0-2) % Lymph # (Auto) (1.2-4.9) X10*3/uL [place] # (Auto) (0.1-1.2) X10*3/uL Eos # (Auto) (0.0-0.4) X10*3/uL Baso # (Auto) (0.0-0.2) X10*3/uL Abs Immat Gran (auto) (0.00-0.03) X10*3/uL Absolute Neuts (auto) (2.0-8.3) X10*3/uL Absolute Nucleated RBC (0.0-0.012) X10*3/uL Nucleated RBC % (auto) (0.0-0.2) /100WBC Hold Blue Top VBG pH (7.32-7.43) VBG pCO2 mmhg VBG pO2 mmhg VBG HCO3 mmol/L VBG O2 Saturation % VBG Base Excess mmol/L Sodium 137 (135-145) mmol/L Potassium 4.0 (3.3-5.1) mmol/l Chloride 105 (96-108) mmol/L Carbon Dioxide 14 L (22-29) mmol/L Anion Gap 22 H (12-20) BUN 9 (9-16) mg/dL Creatinine 1.57 H (0.5-1.4) mg/dL Estim Creat Clear Calc 105.8 Estimated GFR 56 POC Glucose 301 H 292 H (60-115) mg/dL Random Glucose 329 H D (60-115) mg/dL Lactic Acid (0.5-2.0) mmol/L Calcium 8.8 D (8.4-10.2) mg/dL Total Bilirubin (0.0-1.0) mg/dL AST (5-37) U/L ALT (0-40) U/L Alkaline Phosphatase (39-117) U/L Total Protein (6.5-8.0) g/dL Albumin (3.5-5.0) g/dL Lipase (8-78) U/L Urine Color Urine Appearance Urine pH (5.0-8.0) Ur Specific [place] (1.005-1.025) Urine Protein (NEG-TRACE) MG/DL Urine Glucose (UA) (NEG) MG/DL Urine Ketones (NEG) MG/DL Urine Blood (NEG) Urine Nitrite (NEG) Ur Leukocyte Esterase (NEG) Urine RBC (0) /HPF Urine WBC (0-4) /HPF Ur Squamous Epith Cells /LPF Urine Bacteria /LPF Urine Test (NEGATIVE) Acetone, Qual (Negative) COVID-19 (BRE) (Negative) COVID-19 Clin Com 06/25/20 06/25/20 06/25/20 Range/Units 01:14 01:53 01:55 WBC (4.8-10.8) X10*3/uL RBC (4.60-5.80) X10*6/uL Hgb (14.0-18.0) g/dl Hct (42-52) % MCV (80-98) fL MCH (27.0-33.0) pg MCHC (31.0-36.0) g/dl RDW (11.0-16.0) % Plt Count (160-400) X10*3/uL MPV (9.4-12.4) fL Immature Gran % (Auto) (0.0-0.4) % Neut % (Auto) (45-73) % Lymph % (Auto) (20-40) % [place] % (Auto) (2-11) % Eos % (Auto) (0-4) % Baso % (Auto) (0-2) % Lymph # (Auto) (1.2-4.9) X10*3/uL [place] # (Auto) (0.1-1.2) X10*3/uL Eos # (Auto) (0.0-0.4) X10*3/uL Baso # (Auto) (0.0-0.2) X10*3/uL Abs Immat Gran (auto) (0.00-0.03) X10*3/uL Absolute Neuts (auto) (2.0-8.3) X10*3/uL Absolute Nucleated RBC (0.0-0.012) X10*3/uL Nucleated RBC % (auto) (0.0-0.2) /100WBC Hold Blue Top VBG pH 7.30 L (7.32-7.43) VBG pCO2 30 mmhg VBG pO2 104 mmhg VBG HCO3 14 mmol/L VBG O2 Saturation 97.8 % VBG Base Excess -10.8 mmol/L Sodium (135-145) mmol/L Potassium (3.3-5.1) mmol/l Chloride (96-108) mmol/L Carbon Dioxide (22-29) mmol/L Anion Gap (12-20) BUN (9-16) mg/dL Creatinine (0.5-1.4) mg/dL Estim Creat Clear Calc Estimated GFR POC Glucose 287 H 247 H (60-115) mg/dL Random Glucose (60-115) mg/dL Lactic Acid (0.5-2.0) mmol/L Calcium (8.4-10.2) mg/dL Total Bilirubin (0.0-1.0) mg/dL AST (5-37) U/L ALT (0-40) U/L Alkaline Phosphatase (39-117) U/L Total Protein (6.5-8.0) g/dL Albumin (3.5-5.0) g/dL Lipase (8-78) U/L Urine Color Urine Appearance Urine pH (5.0-8.0) Ur Specific [place] (1.005-1.025) Urine Protein (NEG-TRACE) MG/DL Urine Glucose (UA) (NEG) MG/DL Urine Ketones (NEG) MG/DL Urine Blood (NEG) Urine Nitrite (NEG) Ur Leukocyte Esterase (NEG) Urine RBC (0) /HPF Urine WBC (0-4) /HPF Ur Squamous Epith Cells /LPF Urine Bacteria /LPF Urine Test (NEGATIVE) Acetone, Qual (Negative) COVID-19 (BRE) (Negative) COVID-19 Clin Com 06/25/20 06/25/20 06/25/20 Range/Units 02:23 03:05 03:23 WBC (4.8-10.8) X10*3/uL RBC (4.60-5.80) X10*6/uL Hgb (14.0-18.0) g/dl Hct (42-52) % MCV (80-98) fL MCH (27.0-33.0) pg MCHC (31.0-36.0) g/dl RDW (11.0-16.0) % Plt Count (160-400) X10*3/uL MPV (9.4-12.4) fL Immature Gran % (Auto) (0.0-0.4) % Neut % (Auto) (45-73) % Lymph % (Auto) (20-40) % [place] % (Auto) (2-11) % Eos % (Auto) (0-4) % Baso % (Auto) (0-2) % Lymph # (Auto) (1.2-4.9) X10*3/uL [place] # (Auto) (0.1-1.2) X10*3/uL Eos # (Auto) (0.0-0.4) X10*3/uL Baso # (Auto) (0.0-0.2) X10*3/uL Abs Immat Gran (auto) (0.00-0.03) X10*3/uL Absolute Neuts (auto) (2.0-8.3) X10*3/uL Absolute Nucleated RBC (0.0-0.012) X10*3/uL Nucleated RBC % (auto) (0.0-0.2) /100WBC Hold Blue Top VBG pH (7.32-7.43) VBG pCO2 mmhg VBG pO2 mmhg VBG HCO3 mmol/L VBG O2 Saturation % VBG Base Excess mmol/L Sodium 135 (135-145) mmol/L Potassium 3.8 (3.3-5.1) mmol/l Chloride 106 (96-108) mmol/L Carbon Dioxide 14 L (22-29) mmol/L Anion Gap 19 (12-20) BUN 8 L (9-16) mg/dL Creatinine 1.42 H (0.5-1.4) mg/dL Estim Creat Clear Calc 117.0 Estimated GFR > 60 POC Glucose 258 H 231 H (60-115) mg/dL Random Glucose 240 H (60-115) mg/dL Lactic Acid (0.5-2.0) mmol/L Calcium 8.8 (8.4-10.2) mg/dL Total Bilirubin (0.0-1.0) mg/dL AST (5-37) U/L ALT (0-40) U/L Alkaline Phosphatase (39-117) U/L Total Protein (6.5-8.0) g/dL Albumin (3.5-5.0) g/dL Lipase (8-78) U/L Urine Color Urine Appearance Urine pH (5.0-8.0) Ur Specific [place] (1.005-1.025) Urine Protein (NEG-TRACE) MG/DL Urine Glucose (UA) (NEG) MG/DL Urine Ketones (NEG) MG/DL Urine Blood (NEG) Urine Nitrite (NEG) Ur Leukocyte Esterase (NEG) Urine RBC (0) /HPF Urine WBC (0-4) /HPF Ur Squamous Epith Cells /LPF Urine Bacteria /LPF Urine Test (NEGATIVE) Acetone, Qual (Negative) COVID-19 (BRE) (Negative) COVID-19 Clin Com 06/25/20 Range/Units 03:27 WBC (4.8-10.8) X10*3/uL RBC (4.60-5.80) X10*6/uL Hgb (14.0-18.0) g/dl Hct (42-52) % MCV (80-98) fL MCH (27.0-33.0) pg MCHC (31.0-36.0) g/dl RDW (11.0-16.0) % Plt Count (160-400) X10*3/uL MPV (9.4-12.4) fL Immature Gran % (Auto) (0.0-0.4) % Neut % (Auto) (45-73) % Lymph % (Auto) (20-40) % [place] % (Auto) (2-11) % Eos % (Auto) (0-4) % Baso % (Auto) (0-2) % Lymph # (Auto) (1.2-4.9) X10*3/uL [place] # (Auto) (0.1-1.2) X10*3/uL Eos # (Auto) (0.0-0.4) X10*3/uL Baso # (Auto) (0.0-0.2) X10*3/uL Abs Immat Gran (auto) (0.00-0.03) X10*3/uL Absolute Neuts (auto) (2.0-8.3) X10*3/uL Absolute Nucleated RBC (0.0-0.012) X10*3/uL Nucleated RBC % (auto) (0.0-0.2) /100WBC Hold Blue Top VBG pH 7.30 L (7.32-7.43) VBG pCO2 30 mmhg VBG pO2 83 mmhg VBG HCO3 14 mmol/L VBG O2 Saturation 96.1 % VBG Base Excess -10.5 mmol/L Sodium (135-145) mmol/L Potassium (3.3-5.1) mmol/l Chloride (96-108) mmol/L Carbon Dioxide (22-29) mmol/L Anion Gap (12-20) BUN (9-16) mg/dL Creatinine (0.5-1.4) mg/dL Estim Creat Clear Calc Estimated GFR POC Glucose (60-115) mg/dL Random Glucose (60-115) mg/dL Lactic Acid (0.5-2.0) mmol/L Calcium (8.4-10.2) mg/dL Total Bilirubin (0.0-1.0) mg/dL AST (5-37) U/L ALT (0-40) U/L Alkaline Phosphatase (39-117) U/L Total Protein (6.5-8.0) g/dL Albumin (3.5-5.0) g/dL Lipase (8-78) U/L Urine Color Urine Appearance Urine pH (5.0-8.0) Ur Specific [place] (1.005-1.025) Urine Protein (NEG-TRACE) MG/DL Urine Glucose (UA) (NEG) MG/DL Urine Ketones (NEG) MG/DL Urine Blood (NEG) Urine Nitrite (NEG) Ur Leukocyte Esterase (NEG) Urine RBC (0) /HPF Urine WBC (0-4) /HPF Ur Squamous Epith Cells /LPF Urine Bacteria /LPF Urine Test (NEGATIVE) Acetone, Qual (Negative) COVID-19 (BRE) (Negative) COVID-19 Clin Com Discharge Plan Discharge Clinical Impression: Infected pilonidal cyst Acute renal failure Qualifiers: Acute renal failure type: unspecified Qualified Code(s): N17.9 - Acute kidney failure, unspecified DKA (diabetic ketoacidoses) Qualifiers: Diabetes mellitus type: type 2 Diabetes mellitus complication detail: without coma Qualified Code(s): E11.10 - Type 2 diabetes mellitus with ketoacidosis without coma Hypertension Qualifiers: Hypertension type: unspecified Qualified Code(s): I10 - Essential (primary) hypertension Patient Disposition: Admitted As Inpatient
--- NOTE | 2020-06-25 05:25 | PC.NURSE ---
Pt sleeping in bed at this time, awaiting bed assignment. Continue to monitor.
--- NOTE | 2020-06-25 07:12 | PC.NURSE ---
report taken from zena donato. plan for pt to be admitted. has not seen hospitalist yet. awaiting eval.
[2020-06-25 08:53] LABS: Glucose, Whole Blood 274 mg/dL (60-115)
--- NOTE | 2020-06-25 09:00 | PC.NURSE ---
hold subcut insulin until hospitalist arrives per provider in ed.
--- NOTE | 2020-06-25 09:13 | PC.NURSE ---
per hospitalist at bedside. have pt eat. recheck sugar. plan to dc dextrose and start sliding scale.
[2020-06-25 09:19] LABS: Estimated Average Glucose 301 mg/dL; Hemoglobin A1c % 12.1 %
[2020-06-25 10:47] LABS: Glucose, Whole Blood 247 mg/dL (60-115)
[2020-06-25 11:08] LABS: Acetone, serum QL Large (Negative)
--- NOTE | 2020-06-25 11:14 | PC.NURSE ---
insulin drip dc prior to this rn shift. bag just dc in chart with rn ewa
[2020-06-25 11:18] LABS: Anion Gap 19 (12-20); Blood Urea Nitrogen 8 mg/dL (9-16); Calcium 8.4 mg/dL (8.4-10.2); Carbon Dioxide 15 mmol/L (22-29); Chloride 105 mmol/L (96-108); Estimated Glomerular Filt Rate > 60; Glucose Random 334 mg/dL (60-115); Potassium 3.7 mmol/l (3.3-5.1); Sodium 135 mmol/L (135-145)
[2020-06-25] MEDS: 0.9 % Sodium Chloride 1,000 ML 100 ML IVCONT ×2 (13:21→23:40)
[2020-06-25] MEDS: Enoxaparin Sodium 40 MG/0.4 ML SYRINGE SUBCUT (13:22)
--- NOTE | 2020-06-25 13:30 | PM.IMHP ---
History of Present Illness Date of Service: 06/25/20 Chief Complaint: nausea and vomiting, lethargy, previously healthy 18 T years old male with significant obesity who presents to the hospital complaining of increased lethargy, abdominal pain with nausea vomiting and lower back pain. The patient reports for the last few weeks he notices been going more to the bathroom for urine. He noticed he is getting more tired and lethargic over the same Time. Almost week ago he had a random blood sugar checked by his relative and around 500. over the last 3 days he noticed pain and swelling in his toes buttock area. It seems to be a bili ana cyst.he presented to the hospital today With weakness, nausea and vomiting and abdominal pain with associated pain in his lower back. The bony ana cyst was drained in the emergency. His blood work was significant for anion gap metabolic acidosis, DKA. He was treated with IV fluid and IV insulin the emergency with good response. His anion gap closed and he was admitted to the medical floor for further evaluation and treatment. Review of Systems Review of Systems: No fever, chills But reports lethargy, weakness No chest pain, palpitation No shortness of breath or coughing complains of abdominal pain, nausea or vomiting urine frequency, no other urinary symptoms No any rash or wounds PMFSH Medical History No known health problems Social History Household Members: Family Housing: Apartment Do you presently have visiting nurse or other home services: No Alcohol intake: current Alcohol intake frequency: holidays/special occasions only Smoking Status: Never smoker Use of substances other than those prescribed or required for medical reasons: No Have you been hit, kicked, punched, or otherwise hurt by someone within the past year? If so, by whom?: No Do you feel safe in your current relationship?: No Is there a partner from a previous relationship who is making you feel unsafe now?: No Are you made to feel afraid or neglected: No Advance Directives: No Advance Directives Information Provided: No Do you have thoughts of harming others: None Do you have a plan to hurt others: No Plan Recently lost weight without trying: No Meds Allergies Allergy/AdvReac Type Severity Reaction Status Date / Time No Known Allergies Allergy Verified 06/24/20 21:43 Home Medications Medication Instructions Recorded Confirmed Type No Known Home Meds 06/24/20 06/24/20 History Physical Exam Vital Signs and Narrative: Vital Signs: Last Vital Signs Temp 97.1 F 06/25/20 13:18 Pulse 82 06/25/20 13:18 Resp 19 06/25/20 13:18 BP 115/62 06/25/20 13:18 Pulse Ox 100 06/25/20 13:18 Body Mass Index 43.2 Constitutional : Alert, oriented, not in distress Neck : Normal inspection, Supple Cardiovascular : RRR, S1 S2, no lower extremity edema Respiratory : Good bilateral air entry, no crackles, wheezes or rhonchi Gastrointestinal: soft, lax, Normal bowel sounds, Non tender Skin : Warm/Dry, No rash Neurological : Alert & oriented x3, No focal deficit Results Labs CBC and Chem 7: 06/24/20 19:28 06/25/20 10:42 Labs: Laboratory Results - last 24 hr 06/24/20 06/24/20 06/24/20 18:15 18:17 19:27 MCV MCH MCHC RDW Plt Count MPV Immature Gran % (Auto) Neut % (Auto) Lymph % (Auto) [place] % (Auto) Eos % (Auto) Baso % (Auto) Lymph # (Auto) [place] # (Auto) Eos # (Auto) Baso # (Auto) Abs Immat Gran (auto) Absolute Neuts (auto) Absolute Nucleated RBC Nucleated RBC % (auto) Hold Blue Top VBG pH VBG pCO2 VBG pO2 VBG HCO3 VBG O2 Saturation VBG Base Excess Anion Gap 25 H Estim Creat Clear Calc 87.0 Estimated GFR 44 POC Glucose > 600 H* > 600 H* Random Glucose 644 H* Estimat Average Glucose Hemoglobin A1c % Lactic Acid Calcium 9.4 Total Bilirubin 0.7 AST 23 ALT 40 Alkaline Phosphatase 199 H Total Protein 8.4 H Albumin 4.9 Lipase 12 Urine Color Urine Appearance Urine pH Ur Specific [place] Urine Protein Urine Glucose (UA) Urine Ketones Urine Blood Urine Nitrite Ur Leukocyte Esterase Urine RBC Urine WBC Ur Squamous Epith Cells Urine Bacteria Urine Test Acetone, Qual Moderate H COVID-19 (BRE) COVID-19 Clin Com 06/24/20 06/24/20 06/24/20 19:27 19:27 19:27 MCV MCH MCHC RDW Plt Count MPV Immature Gran % (Auto) Neut % (Auto) Lymph % (Auto) [place] % (Auto) Eos % (Auto) Baso % (Auto) Lymph # (Auto) [place] # (Auto) Eos # (Auto) Baso # (Auto) Abs Immat Gran (auto) Absolute Neuts (auto) Absolute Nucleated RBC Nucleated RBC % (auto) Hold Blue Top VBG pH 7.19 L* VBG pCO2 30 VBG pO2 76 VBG HCO3 11 VBG O2 Saturation 93.8 VBG Base Excess -15.3 Anion Gap Estim Creat Clear Calc Estimated GFR POC Glucose Random Glucose Estimat Average Glucose 301 Hemoglobin A1c % 12.1 Lactic Acid 1.7 Calcium Total Bilirubin AST ALT Alkaline Phosphatase Total Protein Albumin Lipase Urine Color Urine Appearance Urine pH Ur Specific [place] Urine Protein Urine Glucose (UA) Urine Ketones Urine Blood Urine Nitrite Ur Leukocyte Esterase Urine RBC Urine WBC Ur Squamous Epith Cells Urine Bacteria Urine Test Acetone, Qual COVID-19 (BRE) COVID-19 Clin Com 06/24/20 06/24/20 06/24/20 19:28 19:28 19:50 MCV 85.7 MCH 28.7 MCHC 33.5 RDW 13.7 Plt Count 297 MPV 12.1 Immature Gran % (Auto) 1.5 H Neut % (Auto) 75.3 H Lymph % (Auto) 15.4 L [place] % (Auto) 7.3 Eos % (Auto) 0.2 Baso % (Auto) 0.3 Lymph # (Auto) 1.5 [place] # (Auto) 0.7 Eos # (Auto) 0.0 Baso # (Auto) 0.0 Abs Immat Gran (auto) 0.15 H Absolute Neuts (auto) 7.3 Absolute Nucleated RBC 0.000 Nucleated RBC % (auto) 0.0 Hold Blue Top SEE NOTE VBG pH VBG pCO2 VBG pO2 VBG HCO3 VBG O2 Saturation VBG Base Excess Anion Gap Estim Creat Clear Calc Estimated GFR POC Glucose Random Glucose Estimat Average Glucose Hemoglobin A1c % Lactic Acid Calcium Total Bilirubin AST ALT Alkaline Phosphatase Total Protein Albumin Lipase Urine Color YELLOW Urine Appearance CLEAR Urine pH 6.0 Ur Specific [place] 1.015 Urine Protein NEG Urine Glucose (UA) >=1000 H Urine Ketones >=80 Urine Blood 1+ H Urine Nitrite NEG Ur Leukocyte Esterase NEG Urine RBC 1-4 Urine WBC 1-4 Ur Squamous Epith Cells 1+ Urine Bacteria 1+ Urine Test NEGATIVE Acetone, Qual COVID-19 (BRE) COVID-19 [email or web address] 06/24/20 06/24/20 06/24/20 20:53 21:12 21:33 MCV MCH MCHC RDW Plt Count MPV Immature Gran % (Auto) Neut % (Auto) Lymph % (Auto) [place] % (Auto) Eos % (Auto) Baso % (Auto) Lymph # (Auto) [place] # (Auto) Eos # (Auto) Baso # (Auto) Abs Immat Gran (auto) Absolute Neuts (auto) Absolute Nucleated RBC Nucleated RBC % (auto) Hold Blue Top VBG pH VBG pCO2 VBG pO2 VBG HCO3 VBG O2 Saturation VBG Base Excess Anion Gap Estim Creat Clear Calc Estimated GFR POC Glucose 500 H* 429 H* Random Glucose Estimat Average Glucose Hemoglobin A1c % Lactic Acid Calcium Total Bilirubin AST ALT Alkaline Phosphatase Total Protein Albumin Lipase Urine Color Urine Appearance Urine pH Ur Specific [place] Urine Protein Urine Glucose (UA) Urine Ketones Urine Blood Urine Nitrite Ur Leukocyte Esterase Urine RBC Urine WBC Ur Squamous Epith Cells Urine Bacteria Urine Test Acetone, Qual COVID-19 (BRE) Negative [email or web address] See Note 06/24/20 06/24/20 06/24/20 22:07 22:35 23:04 MCV MCH MCHC RDW Plt Count MPV Immature Gran % (Auto) Neut % (Auto) Lymph % (Auto) [place] % (Auto) Eos % (Auto) Baso % (Auto) Lymph # (Auto) [place] # (Auto) Eos # (Auto) Baso # (Auto) Abs Immat Gran (auto) Absolute Neuts (auto) Absolute Nucleated RBC Nucleated RBC % (auto) Hold Blue Top VBG pH VBG pCO2 VBG pO2 VBG HCO3 VBG O2 Saturation VBG Base Excess Anion Gap Estim Creat Clear Calc Estimated GFR POC Glucose 355 H* 286 H 289 H Random Glucose Estimat Average Glucose Hemoglobin A1c % Lactic Acid Calcium Total Bilirubin AST ALT Alkaline Phosphatase Total Protein Albumin Lipase Urine Color Urine Appearance Urine pH Ur Specific [place] Urine Protein Urine Glucose (UA) Urine Ketones Urine Blood Urine Nitrite Ur Leukocyte Esterase Urine RBC Urine WBC Ur Squamous Epith Cells Urine Bacteria Urine Test Acetone, Qual COVID-19 (BRE) COVID-19 [email or web address] 06/24/20 06/25/20 06/25/20 23:37 00:02 00:06 MCV MCH MCHC RDW Plt Count MPV Immature Gran % (Auto) Neut % (Auto) Lymph % (Auto) [place] % (Auto) Eos % (Auto) Baso % (Auto) Lymph # (Auto) [place] # (Auto) Eos # (Auto) Baso # (Auto) Abs Immat Gran (auto) Absolute Neuts (auto) Absolute Nucleated RBC Nucleated RBC % (auto) Hold Blue Top VBG pH VBG pCO2 VBG pO2 VBG HCO3 VBG O2 Saturation VBG Base Excess Anion Gap 22 H Estim Creat Clear Calc 105.8 Estimated GFR 56 POC Glucose 272 H 301 H Random Glucose 329 H D Estimat Average Glucose Hemoglobin A1c % Lactic Acid Calcium 8.8 D Total Bilirubin AST ALT Alkaline Phosphatase Total Protein Albumin Lipase Urine Color Urine Appearance Urine pH Ur Specific [place] Urine Protein Urine Glucose (UA) Urine Ketones Urine Blood Urine Nitrite Ur Leukocyte Esterase Urine RBC Urine WBC Ur Squamous Epith Cells Urine Bacteria Urine Test Acetone, Qual COVID-19 (BRE) [email or web address] 06/25/20 06/25/20 06/25/20 00:32 01:14 01:53 MCV MCH MCHC RDW Plt Count MPV Immature Gran % (Auto) Neut % (Auto) Lymph % (Auto) [place] % (Auto) Eos % (Auto) Baso % (Auto) Lymph # (Auto) [place] # (Auto) Eos # (Auto) Baso # (Auto) Abs Immat Gran (auto) Absolute Neuts (auto) Absolute Nucleated RBC Nucleated RBC % (auto) Hold Blue Top VBG pH VBG pCO2 VBG pO2 VBG HCO3 VBG O2 Saturation VBG Base Excess Anion Gap Estim Creat Clear Calc Estimated GFR POC Glucose 292 H 287 H 247 H Random Glucose Estimat Average Glucose Hemoglobin A1c % Lactic Acid Calcium Total Bilirubin AST ALT Alkaline Phosphatase Total Protein Albumin Lipase Urine Color Urine Appearance Urine pH Ur Specific [place] Urine Protein Urine Glucose (UA) Urine Ketones Urine Blood Urine Nitrite Ur Leukocyte Esterase Urine RBC Urine WBC Ur Squamous Epith Cells Urine Bacteria Urine Test Acetone, Qual COVID-19 (BRE) [email or web address] 06/25/20 06/25/20 06/25/20 01:55 02:23 03:05 MCV MCH MCHC RDW Plt Count MPV Immature Gran % (Auto) Neut % (Auto) Lymph % (Auto) [place] % (Auto) Eos % (Auto) Baso % (Auto) Lymph # (Auto) [place] # (Auto) Eos # (Auto) Baso # (Auto) Abs Immat Gran (auto) Absolute Neuts (auto) Absolute Nucleated RBC Nucleated RBC % (auto) Hold Blue Top VBG pH 7.30 L VBG pCO2 30 VBG pO2 104 VBG HCO3 14 VBG O2 Saturation 97.8 VBG Base Excess -10.8 Anion Gap Estim Creat Clear Calc Estimated GFR POC Glucose 258 H 231 H Random Glucose Estimat Average Glucose Hemoglobin A1c % Lactic Acid Calcium Total Bilirubin AST ALT Alkaline Phosphatase Total Protein Albumin Lipase Urine Color Urine Appearance Urine pH Ur Specific [place] Urine Protein Urine Glucose (UA) Urine Ketones Urine Blood Urine Nitrite Ur Leukocyte Esterase Urine RBC Urine WBC Ur Squamous Epith Cells Urine Bacteria Urine Test [employer] (BRE) [employer] 06/25/20 06/25/20 06/25/20 03:23 03:27 03:48 MCV MCH MCHC RDW Plt Count MPV Immature Gran % (Auto) Neut % (Auto) Lymph % (Auto) [place] % (Auto) Eos % (Auto) Baso % (Auto) Lymph # (Auto) [place] # (Auto) Eos # (Auto) Baso # (Auto) Abs Immat Gran (auto) Absolute Neuts (auto) Absolute Nucleated RBC Nucleated RBC % (auto) Hold Blue Top VBG pH 7.30 L VBG pCO2 30 VBG pO2 83 VBG HCO3 14 VBG O2 Saturation 96.1 VBG Base Excess -10.5 Anion Gap 19 Estim Creat Clear Calc 117.0 Estimated GFR > 60 POC Glucose 247 H Random Glucose 240 H Estimat Average Glucose Hemoglobin A1c % Lactic Acid Calcium 8.8 Total Bilirubin AST ALT Alkaline Phosphatase Total Protein Albumin Lipase Urine Color Urine Appearance Urine pH Ur Specific [place] Urine Protein Urine Glucose (UA) Urine Ketones Urine Blood Urine Nitrite Ur Leukocyte Esterase Urine RBC Urine WBC Ur Squamous Epith Cells Urine Bacteria Urine Test Acetone, Qual COVID-19 (BRE) [employer] 06/25/20 06/25/20 08:49 10:42 MCV MCH MCHC RDW Plt Count MPV Immature Gran % (Auto) Neut % (Auto) Lymph % (Auto) [place] % (Auto) Eos % (Auto) Baso % (Auto) Lymph # (Auto) [place] # (Auto) Eos # (Auto) Baso # (Auto) Abs Immat Gran (auto) Absolute Neuts (auto) Absolute Nucleated RBC Nucleated RBC % (auto) Hold Blue Top VBG pH VBG pCO2 VBG pO2 VBG HCO3 VBG O2 Saturation VBG Base Excess Anion Gap 19 Estim Creat Clear Calc 117.0 Estimated GFR > 60 POC Glucose 274 H Random Glucose 334 H D Estimat Average Glucose Hemoglobin A1c % Lactic Acid Calcium 8.4 Total Bilirubin AST ALT Alkaline Phosphatase Total Protein Albumin Lipase Urine Color Urine Appearance Urine pH Ur Specific [place] Urine Protein Urine Glucose (UA) Urine Ketones Urine Blood Urine Nitrite Ur Leukocyte Esterase Urine RBC Urine WBC Ur Squamous Epith Cells Urine Bacteria Urine Test Acetone, Qual Large H COVID-19 (BRE) COVID-19 Clin Com Assessment and Plan (1) Acute renal failure: Qualifiers: Acute renal failure type: unspecified Qualified Code(s): N17.9 - Acute kidney failure, unspecified Status: Acute (2) DKA (diabetic ketoacidoses): Qualifiers: Diabetes mellitus complication detail: without coma Diabetes mellitus type: type 2 Qualified Code(s): E11.10 - Type 2 diabetes mellitus with ketoacidosis without coma Status: Acute (3) Infected pilonidal cyst: Status: Acute (4) Hypertension: Qualifiers: Hypertension type: unspecified Qualified Code(s): I10 - Essential (primary) hypertension Status: Acute (5) High anion gap metabolic acidosis: Status: Acute (6) Newly diagnosed diabetes: Status: Acute previously healthy 18 T years old male with significant obesity who presents to the hospital complaining of increased lethargy, abdominal pain with nausea vomiting and lower back pain. High anion gap metabolic acidosis Secondary to diabetic ketoacidosis New diagnosis of diabetes Received IV fluid and IV insulin with good response as the gap closed. Continue hydration with normal saline Start diet Keep on SSI for now To start oral medications in the morning Pending HbA1c Acute kidney injury Secondary to dehydration from nausea and vomiting Continue IV fluid for now Monitor intake and output Follow BMP Infected bili ana cyst Drained in the Emergency To use doxycycline p.o. Morbid obesity BMI of 43 Advised to lose weight as it is affecting his overall condition and diabetes disease DVT PPX Lovenox
[2020-06-25] MEDS: Flu Vacc QS2020-21(6mos up)/PF 0.5 ML SYRINGE IM (14:36)
--- NOTE | 2020-06-25 15:23 | PC.NURSE ---
Patient new diabetic. Brief education provided about s/s of hyper and hypoglycemia, checking blood sugar, diet, weight loss and exercise.
[2020-06-25 16:26] LABS: Glucose, Whole Blood 326 mg/dL (60-115)
[2020-06-25 21:20] LABS: Glucose, Whole Blood 255 mg/dL (60-115)
[2020-06-26 03:07] VITALS: BP 137/73; PULSE 82; RESP 18; TEMP 37; O2SAT 95
[2020-06-26 07:52] LABS: Glucose, Whole Blood 225 mg/dL (60-115)
[2020-06-26] MEDS: Insulin Lispro 100 UNIT/ML 3 ML VIAL SUBCUT ×4 (07:57→21:32)
[2020-06-26 08:00] VITALS: BP 158/82; PULSE 87; RESP 16; TEMP 36.8; O2SAT 100
[2020-06-26 08:01] LABS: MANUAL DIFF FLAG NO
[2020-06-26 08:10] LABS: Basophils Percent Auto 0.5 % (0-2); Eosinophils Absolute Auto 0.1 X10*3/uL (0.0-0.4); Eosinophils Percent Auto 1.6 % (0-4); Hematocrit 38.5 % (42-52); Hemoglobin 12.7 g/dl (14.0-18.0); Imm Gran Pct Auto 1.6 % (0.0-0.4); Lymphocytes Absolute Auto 2.5 X10*3/uL (1.2-4.9); Mean Corpuscular Hemoglobin 28.3 pg (27.0-33.0); Mean Corpuscular Volume 85.7 fL (80-98); Mean Platelet Volume 11.5 fL (9.4-12.4); Monocytes Absolute Auto 0.6 X10*3/uL (0.1-1.2); Neutrophils Absolute Auto 3.2 X10*3/uL (2.0-8.3); Neutrophils Percent Auto 49.3 % (45-73); Platelet Count 231 X10*3/uL (160-400); Red Blood Count 4.49 X10*6/uL (4.60-5.80); Red Cell Distribution Width 13.7 % (11.0-16.0); White Blood Count 6.5 X10*3/uL (4.8-10.8)
[2020-06-26] MEDS: Insulin Glargine,Hum.rec.anlog 100 UNIT/ML 10 ML VIAL 10 UNIT SUBCUT (08:35)
[2020-06-26] MEDS: metFORMIN HCl 850 MG TABLET PO ×2 (08:35→16:53)
[2020-06-26 08:37] LABS: Anion Gap 16 (12-20); Blood Urea Nitrogen 7 mg/dL (9-16); Calcium 8.4 mg/dL (8.4-10.2); Carbon Dioxide 21 mmol/L (22-29); Chloride 103 mmol/L (96-108); Creatinine Clr Calc Pharmacy 143.2; Estimated Glomerular Filt Rate > 60; Glucose Random 224 mg/dL (60-115); Potassium 3.4 mmol/l (3.3-5.1); Sodium 137 mmol/L (135-145)
[2020-06-26] MEDS: 0.9 % Sodium Chloride 1,000 ML 100 ML IVCONT (08:39)
[2020-06-26 08:47] LABS: Cholesterol 183 mg/dL; HDL Cholesterol 23 mg/dL; LDL Cholesterol Calculated 138 mg/dl; Triglycerides 111 mg/dL
[2020-06-26 11:25] VITALS: BP 153/65; PULSE 83; RESP 18; TEMP 37; O2SAT 99
[2020-06-26 12:10] LABS: Glucose, Whole Blood 263 mg/dL (60-115)
[2020-06-26] MEDS: Enoxaparin Sodium 40 MG/0.4 ML SYRINGE SUBCUT (12:11)
--- NOTE | 2020-06-26 12:22 | HO.PM.IMPN ---
Subjective Subjective Date of Service: 06/26/20 Interval History: the patient was seen and evaluated this morning Laying in bed, feels comfortable Denies any fever, chills or shortness of breath No reported other overnight events. Systemic review: No fever, chills or weakness No chest pain, palpitation No shortness of breath or coughing No abdominal pain, nausea or vomiting No urinary symptoms No any rash or wounds Physical Exam Vital Signs: Vital Signs: Last Vital Signs Temp 98.6 F 06/26/20 11: Pulse 83 06/26/20 11:25 Resp 18 06/26/20 11:25 BP 153/65 H 06/26/20 11:25 Pulse Ox 99 06/26/20 11:25 Body Mass Index 43.2 Constitutional : Alert, oriented, not in distress Neck : Normal inspection, Supple Cardiovascular : RRR, S1 S2, no lower extremity edema Respiratory : Good bilateral air entry, no crackles, wheezes or rhonchi Gastrointestinal: soft, lax, Normal bowel sounds, Non tender Skin : Warm/Dry, No rash Neurological : Alert & oriented x3, No focal deficit Objective Data Current Medications Generic Name Dose Route Start Last Admin Trade Name Freq PRN Reason Stop Dose Admin Acetaminophen 650 mg 06/25/20 12:43 Acetaminophen 325 Mg Tablet PO Q6H PRN Pain, Mild (Pain Scale 1-3) Doxycycline Hyclate 100 mg 06/25/20 19:00 06/26/20 07:57 Doxycycline Hyclate 100 Mg Tablet PO 100 mg Q12H ANGEL Administration Enoxaparin Sodium 40 mg 06/25/20 13:00 06/26/20 12:11 Enoxaparin Sodium 40 Mg/0.4 Ml Syringe SUBCUT 40 mg Q24H ANGEL Administration Insulin Glargine 10 unit 06/26/20 09:00 06/26/20 08:35 Insulin Glargine,Hum.Rec.Anlog 100 Unit/Ml 10 Ml Vial SUBCUT 10 unit DAILY ANGEL Administration Insulin Human Lispro 0 unit 06/25/20 12:43 06/26/20 12:11 Insulin Lispro 100 Unit/Ml 3 Ml Vial SUBCUT 6 unit QIDACHS ANGEL Administration Protocol Lidocaine HCl 1 appl 06/24/20 19:14 06/24/20 22:16 Lidocaine 4 % Cream Kit TOPICAL 1 appl ONCE PRN Administration pilonidal cyst Protocol Metformin HCl 850 mg 06/26/20 17:00 Metformin Hcl 850 Mg Tablet PO BIDWM [facility] Ondansetron HCl 4 mg 06/25/20 12:43 Ondansetron Hcl 4 Mg/2 Ml Vial IVPUSH Q8H PRN Nausea and Vomiting Pharmacy Consult 1 each 06/24/20 20:39 Consult Rx Perform Med Rec MISCELLANE ONCE PRN Consult order Labs CBC & Chem 7: 06/26/20 07:09 06/26/20 06:17 Microbiology Microbiology Results: Microbiology 06/24/20 22:06 Blood - Venous Blood Culture - Preliminary No growth after 24 hours. 06/24/20 22:06 Blood - Venous Blood Culture - Preliminary No growth after 24 hours. Assessment and Plan (1) Acute renal failure: Status: Acute (2) DKA (diabetic ketoacidoses): Status: Acute (3) Infected pilonidal cyst: Status: Acute (4) Hypertension: Status: Acute (5) High anion gap metabolic acidosis: Status: Acute (6) Newly diagnosed diabetes: Status: Acute Assessment and Plan: previously healthy 18 T years old male with significant obesity who presents to the hospital complaining of increased lethargy, abdominal pain with nausea vomiting and lower back pain. High anion gap metabolic acidosis, resolved diabetic ketoacidosis, resolved Hyperglycemia secondary to new diabetes Discontinue IV fluids Diabetic diet Continue SSI for now Start Lantus 10 units daily Start metformin 850 b.i.d. HbA1c 12.1 Plan to discharge home on insulin and metformin, to follow-up with Endocrinology as outpatient Acute kidney injury Resolved Discontinue IVF Follow BMP tomorrow morning Infected bili ana cyst Drained in the Emergency Continue doxycycline p.o. Morbid obesity BMI of 43 Advised to lose weight as it is affecting his overall condition and diabetes disease DVT PPX Lovenox
[2020-06-26 15:23] VITALS: BP 149/75; PULSE 97; RESP 18; TEMP 36.6; O2SAT 99
[2020-06-26 16:33] LABS: Glucose, Whole Blood 307 mg/dL (60-115)
[2020-06-26 19:42] VITALS: BP 158/75; PULSE 83; RESP 18; TEMP 36.6; O2SAT 96
[2020-06-26 20:59] LABS: Glucose, Whole Blood 247 mg/dL (60-115)
[2020-06-26 23:34] VITALS: BP 151/84; PULSE 83; RESP 16; TEMP 36.3; O2SAT 99
[2020-06-27 02:48] VITALS: BP 148/64; PULSE 83; RESP 16; TEMP 36.6; O2SAT 98
[2020-06-27 07:54] VITALS: BP 143/78; PULSE 84; RESP 18; TEMP 36.5; O2SAT 99
[2020-06-27 08:00] LABS: Anion Gap 15 (12-20); Blood Urea Nitrogen 7 mg/dL (9-16); Calcium 8.6 mg/dL (8.4-10.2); Carbon Dioxide 23 mmol/L (22-29); Chloride 99 mmol/L (96-108); Creatinine Clr Calc Pharmacy 151.1; Estimated Glomerular Filt Rate > 60; Glucose Random 283 mg/dL (60-115); Potassium 3.1 mmol/l (3.3-5.1); Sodium 134 mmol/L (135-145)
[2020-06-27] MEDS: Insulin Lispro 100 UNIT/ML 3 ML VIAL SUBCUT ×3 (08:00→12:05)
[2020-06-27] MEDS: Insulin Glargine,Hum.rec.anlog 100 UNIT/ML 10 ML VIAL 15 UNIT SUBCUT (08:00)
[2020-06-27] MEDS: metFORMIN HCl 850 MG TABLET PO (08:00)
[2020-06-27 08:20] LABS: Glucose, Whole Blood 332 mg/dL (60-115)
--- NOTE | 2020-06-27 10:19 | MHC.CM.PN ---
NURSE YARD JOCKEY NOTE ELECTRONIC MEDICAL RECORD REVIEWED CASE DISCUSSED WITH STAFF NURSE AND HOSPITALIST , PATIENT IS NEW DIABETIC AND ON INSULIN, PER STAFF NURSE HE HAS A GOOD UNDERSTANDING AND DEMONSTRATED INSULIN ADMINISTRATION HE IS NOT HOME BOUND DISCHARGE PLAN HOME WITH NO SERVICES PCP PATIENT TO CALL FOR POST HOSPITAL DISCHARGE FOLLOW UP TRANSPORTATION PATIENT WILL SELF ARRANGE
[2020-06-27 11:35] LABS: Glucose, Whole Blood 351 mg/dL (60-115)
[2020-06-27 11:46] VITALS: BP 169/75; PULSE 90; RESP 18; TEMP 36.3; O2SAT 98
[2020-06-27] MEDS: Insulin Glargine,Hum.rec.anlog 100 UNIT/ML 10 ML VIAL SUBCUT (12:05)
[2020-06-27] MEDS: Enoxaparin Sodium 40 MG/0.4 ML SYRINGE SUBCUT (12:06)
[2020-06-27 13:48] LABS: Glucose, Whole Blood 182 mg/dL (60-115)
--- NOTE | 2020-06-27 14:42 | P.DS_ITS ---
DS: Providers Provider Date of admission: 06/25/20 11:25 Primary care physician: Unknown Physician DS: Diagnosis Discharge Diagnosis (1) Acute renal failure: Status: Acute (2) DKA (diabetic ketoacidoses): Status: Acute (3) Infected pilonidal cyst: Status: Acute (4) Hypertension: Status: Acute (5) High anion gap metabolic acidosis: Status: Acute (6) Newly diagnosed diabetes: Status: Acute DS: Medications Discharge Medications Home Medications: Previous Rx's Medication Instructions Recorded blood sugar diagnostic [Blood #100 ea 06/27/20 Glucose Test] blood-glucose meter [Accu-Chek #1 ea 06/27/20 Guide Glucose Meter] insulin glargine [Lantus U-100 20 unit SUBCUT DAILY #10 ml 06/27/20 Insulin] insulin glargine [Lantus U-100 20 unit SUBCUT QAM #10 ml 06/27/20 Insulin] insulin lispro 1 sliding scale dose SUBCUT 06/27/20 USEASDIRECTD #10 ml lancets #100 ea 06/27/20 metformin 850 mg PO BID #60 tab 06/27/20 needle (disp) 30 gauge #100 ea 06/27/20 DS: Summary Hospital Course Hospital Course: Admission note HPI previously healthy 18 T years old male with significant obesity who presents to the hospital complaining of increased lethargy, abdominal pain with nausea vomiting and lower back pain. The patient reports for the last few weeks he notices been going more to the bathroom for urine. He noticed he is getting more tired and lethargic over the same Time. Almost week ago he had a random blood sugar checked by his relative and around 500. over the last 3 days he noticed pain and swelling in his toes buttock area. It seems to be a bili ana cyst.he presented to the hospital today With weakness, nausea and vomiting and abdominal pain with associated pain in his lower back. The bony ana cyst was drained in the emergency. His blood work was significant for anion gap metabolic acidosis, DKA. He was treated with IV fluid and IV insulin the emergency with good response. His anion gap closed and he was admitted to the medical floor for further evaluation and treatment. Hospital course The patient was admitted to the hospital for treatment of DKA and high anion gap metabolic acidosis that was found as a result of newly diagnosed diabetes at presentation. He was treated primarily with IV insulin and IV fluid with fair response as the anion gap closed and he was changed to subcutaneous insulin Lantus and sliding scale insulin lispro with fair response. Metformin was added as well. His insulin dosage were adjusted during the hospital stay as glucose readings continue to run in 200s. He was able to tolerate diet well and has no further complaints at the day of discharge. A pilonidal cyst was noted at time of presentation and drained in the emergency. to be followed by PCP in the office Discharge plan as below. Time Spent with Patient Time attestation: Total time spent providing and/or coordinating discharge services: Physical Exam Vital Signs: Vital Signs: Last Vital Signs Temp 97.4 F 06/27/20 11:46 Pulse 90 06/27/20 11:46 Resp 18 06/27/20 11:46 BP 169/75 H 06/27/20 11:46 Pulse Ox 98 06/27/20 11:46 Body Mass Index 43.2 Constitutional : Alert, oriented, not in distress Neck : Normal inspection, Supple Cardiovascular : RRR, S1 S2, no lower extremity edema Respiratory : Good bilateral air entry, no crackles, wheezes or rhonchi Gastrointestinal: soft, lax, Normal bowel sounds, Non tender Skin : Warm/Dry, No rash Neurological : Alert & oriented x3, No focal deficit DS: Data Data Completed and Pending Labs on day of discharge: 06/24/20 18:15 Glucose, Whole Blood Routine 06/24/20 18:17 Glucose, Whole Blood Routine 06/24/20 19:14 Insulin Regular, Human [Humulin R] 10 unit IVPUSH ONCE ONE 06/24/20 19:15 0.9 % Sodium Chloride [Ns] 1,000 ml IVCONT 999 mls/hr 0.9 % Sodium Chloride [Ns] 1,000 ml IVCONT 999 mls/hr 06/24/20 19:27 Acetone, serum QL Stat Comprehensive Met. Panel Stat Hemoglobin A1c Stat Lactic Acid Stat Lipase Stat Venous Blood Gas Stat 06/24/20 19:28 Complete Blood Count Auto Diff Stat Hold Lt Blue - Possible Coag Stat 06/24/20 19:50 Ur Preg Test Stat 06/24/20 20:41 ECG 12 lead EKG Stat EKG Documentation DIRECTED 06/24/20 20:45 0.9 % Sodium Chloride [Ns] 1,000 ml IVCONT 999 mls/hr Insulin Regular/NS [Myxredlin] 100 unit in 100 ml IVCONT 10 mls/hr 06/24/20 20:53 Glucose, Whole Blood Routine 06/24/20 21:12 COVID-19 ID NOW ([place]) Stat 06/24/20 21:23 Metoprolol Tartrate [Lopressor] 25 mg PO ONCE ONE 06/24/20 21:33 Glucose, Whole Blood Routine 06/24/20 21:52 Piperacillin Sodium/Tazobactam [Zosyn] 3.375 gm 0.9 % Sodium Chloride [Ns] 50 ml IV ONCE 06/24/20 22:07 Glucose, Whole Blood Routine 06/24/20 22:19 Piperacillin Sodium/Tazobactam [Zosyn] 3.375 gm IV .STK-MED ONE 06/24/20 22:29 Basic Metabolic Panel Stat 06/24/20 22:35 Glucose, Whole Blood Routine 06/24/20 22:37 ondansetron HCL [Zofran] 4 mg IVPUSH ONCE ONE 06/24/20 22:38 ondansetron HCL [Zofran] 4 mg .ROUTE .STK-MED ONE 06/24/20 22:55 Lidocaine HCl 1 % [Xylocaine 1 %] 5 ml SUBCUT ONCE ONE 06/24/20 23:04 Glucose, Whole Blood Routine 06/24/20 23:35 Lidocaine HCl 2 % MPF [Xylocaine 2 % MPF] 5 ml .ROUTE .STK-MED ONE 06/24/20 23:37 Glucose, Whole Blood Routine 06/25/20 00:06 Glucose, Whole Blood Routine 06/25/20 00:32 Glucose, Whole Blood Routine 06/25/20 01:10 Insulin Glargine,Hum.rec.anlog [Lantus] 20 unit SUBCUT ONCE ONE 06/25/20 01:12 Insulin Lispro [Humalog] 5 unit SUBCUT ONCE ONE 06/25/20 01:14 Glucose, Whole Blood Routine 06/25/20 01:30 0.9 % Sodium Chloride [Ns] 1,000 ml IVCONT 999 mls/hr 06/25/20 01:53 Glucose, Whole Blood Routine 06/25/20 01:55 Venous Blood Gas Stat 06/25/20 02:23 Glucose, Whole Blood Routine 06/25/20 02:30 Dextrose 5 % and 0.45 % NaCl [D51/2Ns] 1,000 ml IVCONT 100 mls/hr 06/25/20 03:05 Glucose, Whole Blood Routine 06/25/20 03:23 Basic Metabolic Panel Stat 06/25/20 03:27 VBG [Venous Blood Gas] Stat 06/25/20 03:48 Glucose, Whole Blood Routine 06/25/20 07:15 Glucose, blood poc Q1HR 06/25/20 07:30 Insulin Lispro [Humalog] See Protocol SUBCUT QIDACHS 06/25/20 08:49 Glucose, Whole Blood Routine 06/25/20 09:08 Add Laboratory Test Stat 06/25/20 Breakfast Diabetic Diet 06/25/20 10:42 Acetone, serum QL Stat Basic Metabolic Panel Stat 06/25/20 11:20 Transfer Order Routine 06/25/20 12:43 0.9 % Sodium Chloride [Ns] 1,000 ml IVCONT 100 mls/hr 06/25/20 12:43 Intake and Output QSHIFTE Vital Signs QSHIFT 06/25/20 13:35 Flu Vacc [id number](6mos up)/PF [Fluarix Quad [id number]] 0.5 ml IM .ONCE ONE 06/25/20 16:20 Glucose, Whole Blood Routine 06/25/20 21:15 Glucose, Whole Blood Routine 06/26/20 06:17 Basic Metabolic Panel DAILY@0600 06/26/20 07:08 Lipid Panel Routine 06/26/20 07:09 Complete Blood Count Auto Diff DAILY@0600 06/26/20 07:45 Glucose, Whole Blood Routine 06/26/20 09:00 Insulin Glargine,Hum.rec.anlog [Lantus] 10 unit SUBCUT DAILY glyBURIDE [Diabeta] 5 mg PO DAILY metFORMIN HCl [Glucophage] 850 mg PO DAILY 06/26/20 12:05 Glucose, Whole Blood Routine 06/26/20 16:27 Glucose, Whole Blood Routine 06/26/20 20:52 Glucose, Whole Blood Routine 06/27/20 06:17 Basic Metabolic Panel DAILY@0600 06/27/20 07:52 Glucose, Whole Blood Routine 06/27/20 09:00 Insulin Glargine,Hum.rec.anlog [Lantus] 15 unit SUBCUT DAILY 06/27/20 11:30 Glucose, Whole Blood Routine 06/27/20 11:40 Insulin Glargine,Hum.rec.anlog [Lantus] 5 unit SUBCUT ONCE ONE Insulin Lispro [Humalog] 5 unit SUBCUT ONCE ONE 06/27/20 13:37 Glucose, Whole Blood Routine Laboratory Last Values WBC 6.5 X10*3/uL (4.8-10.8) 06/26/20 07:09 RBC 4.49 X10*6/uL (4.60-5.80) L 06/26/20 07:09 Hgb 12.7 g/dl (14.0-18.0) L 06/26/20 07:09 Hct 38.5 % (42-52) L 06/26/20 07:09 MCV 85.7 fL (80-98) 06/26/20 07:09 MCH 28.3 pg (27.0-33.0) 06/26/20 07:09 MCHC 33.0 g/dl (31.0-36.0) 06/26/20 07:09 RDW 13.7 % (11.0-16.0) 06/26/20 07:09 Plt Count 231 X10*3/uL (160-400) 06/26/20 07:09 MPV 11.5 fL (9.4-12.4) 06/26/20 07:09 Immature Gran % (Auto) 1.6 % (0.0-0.4) H 06/26/20 07:09 Neut % (Auto) 49.3 % (45-73) 06/26/20 07:09 Lymph % (Auto) 38.0 % (20-40) 06/26/20 07:09 [place] % (Auto) 9.0 % (2-11) 06/26/20 07:09 Eos % (Auto) 1.6 % (0-4) 06/26/20 07:09 Baso % (Auto) 0.5 % (0-2) 06/26/20 07:09 Lymph # (Auto) 2.5 X10*3/uL (1.2-4.9) 06/26/20 07:09 [place] # (Auto) 0.6 X10*3/uL (0.1-1.2) 06/26/20 07:09 Eos # (Auto) 0.1 X10*3/uL (0.0-0.4) 06/26/20 07:09 Baso # (Auto) 0.0 X10*3/uL (0.0-0.2) 06/26/20 07:09 Abs Immat Gran (auto) 0.10 X10*3/uL (0.00-0.03) H 06/26/20 07:09 Absolute Neuts (auto) 3.2 X10*3/uL (2.0-8.3) 06/26/20 07:09 Absolute Nucleated RBC 0.000 X10*3/uL (0.0-0.012) 06/26/20 07:09 Nucleated RBC % (auto) 0.0 /100WBC (0.0-0.2) 06/26/20 07:09 Hold Blue Top SEE NOTE 06/24/20 19:28 VBG pH 7.30 (7.32-7.43) L 06/25/20 03:27 VBG pCO2 30 mmhg 06/25/20 03:27 VBG pO2 83 mmhg 06/25/20 03:27 VBG HCO3 14 mmol/L 06/25/20 03:27 VBG O2 Saturation 96.1 % 06/25/20 03:27 VBG Base Excess -10.5 mmol/L 06/25/20 03:27 Sodium 134 mmol/L (135-145) L 06/27/20 06:17 Potassium 3.1 mmol/l (3.3-5.1) L 06/27/20 06:17 Chloride 99 mmol/L (96-108) 06/27/20 06:17 Carbon Dioxide 23 mmol/L (22-29) 06/27/20 06:17 Anion Gap 15 (12-20) 06/27/20 06:17 BUN 7 mg/dL (9-16) L 06/27/20 06:17 Creatinine 1.10 mg/dL (0.5-1.4) 06/27/20 06:17 Estim Creat Clear Calc 151.1 06/27/20 06:17 Estimated GFR > 60 06/27/20 06:17 POC Glucose 182 mg/dL (60-115) H 06/27/20 13:37 Random Glucose 283 mg/dL (60-115) H 06/27/20 06:17 Estimat Average Glucose 301 mg/dL 06/24/20 19:27 Hemoglobin A1c % 12.1 % 06/24/20 19:27 Lactic Acid 1.7 mmol/L (0.5-2.0) 06/24/20 19:27 Calcium 8.6 mg/dL (8.4-10.2) 06/27/20 06:17 Total Bilirubin 0.7 mg/dL (0.0-1.0) 06/24/20 19:27 AST 23 U/L (5-37) 06/24/20 19:27 ALT 40 U/L (0-40) 06/24/20 19:27 Alkaline Phosphatase 199 U/L (39-117) H 06/24/20 19:27 Total Protein 8.4 g/dL (6.5-8.0) H 06/24/20 19: Albumin 4.9 g/dL (3.5-5.0) 06/24/20 19:27 Triglycerides 111 mg/dL 06/26/20 07:08 Cholesterol 183 mg/dL 06/26/20 07:08 LDL Cholesterol, Calc 138 mg/dl 06/26/20 07:08 HDL Cholesterol 23 mg/dL 06/26/20 07:08 Lipase 12 U/L (8-78) 06/24/20 19:27 Urine Color YELLOW 06/24/20 19:50 Urine Appearance CLEAR 06/24/20 19:50 Urine pH 6.0 (5.0-8.0) 06/24/20 19:50 Ur Specific [place] 1.015 (1.005-1.025) 06/24/20 19:50 Urine Protein NEG MG/DL (NEG-TRACE) 06/24/20 19:50 Urine Glucose (UA) >=1000 MG/DL (NEG) H 06/24/20 19:50 Urine Ketones >=80 MG/DL (NEG) 06/24/20 19:50 Urine Blood 1+ (NEG) H 06/24/20 19:50 Urine Nitrite NEG (NEG) 06/24/20 19:50 Ur Leukocyte Esterase NEG (NEG) 06/24/20 19:50 Urine RBC 1-4 /HPF (0) 06/24/20 19:50 Urine WBC 1-4 /HPF (0-4) 06/24/20 19:50 Ur Squamous Epith Cells 1+ /LPF 06/24/20 19:50 Urine Bacteria 1+ /LPF 06/24/20 19:50 Urine Test NEGATIVE (NEGATIVE) 06/24/20 19:50 Acetone, Qual Large (Negative) H 06/25/20 10:42 COVID-19 (BRE) Negative (Negative) 06/24/20 21:12 COVID-19 Clin Com See Note 06/24/20 21:12 Preliminary micro results at discharge 06/24/20 22:06 Blood Culture - Preliminary Blood - Venous No growth after 48 hours. 06/24/20 22:06 Blood Culture - Preliminary Blood - Venous No growth after 48 hours. Discharge Plan Discharge Patient Disposition: Home, Self-Care Referrals: Nidhi Baird MD [Physician] - 2 Weeks ( newly diagnosed diabetes presented with picture of DKA. discharged from the hospital on Lantus, sliding scale and metformin. For your kind evaluation follow-up.) Physician,Unknown [Primary Care Provider] - Discharge Medications: New Lantus U-100 Insulin 100 unit/mL solution 20 unit subcut QAM Qty: 10 RF: 0 insulin lispro 100 unit/mL solution 1 sliding scale dose subcut USEASDIRECTD Qty: 10 RF: 0 (DME) blood-glucose meter [Accu-Chek Guide Glucose Meter] Misc See Rx Instructions .ROUTE .MEDSUPPLY Qty: 1 RF: 0 (DME) Blood Glucose Test Strip See Rx Instructions .ROUTE .MEDSUPPLY Qty: 100 RF: 0 (DME) lancets Misc See Rx Instructions .ROUTE .MEDSUPPLY Qty: 100 RF: 0 (DME) needle (disp) 30 gauge 30 gauge x 1 needle See Rx Instructions .ROUTE .MEDSUPPLY Qty: 100 RF: 0 Lantus U-100 Insulin 100 unit/mL Solution 20 unit subcut DAILY Qty: 10 RF: 0 metformin 850 mg tablet 850 mg PO BID Qty: 60 RF: 0 Discharge Orders: Discharge Order (Routine); Ordered 06/27/20 Ordered By: Drea Johnson Diet: diabetic diet and low fat, low cholesterol Activity on Discharge: As tolerated Visit Report Forms: Patient Portal Discharge page Care Plan Goals: read below Health Concerns: read below Plan of Treatment: you have presented to the hospital complaining of lower back pain and feeling of lethargy. You were found to have very high blood sugar readings associated with condition we called diabetic ketoacidosis. Your treated with IV insulin, IV fluid and supportive therapy with good response. You were admitted to the hospital and treated insulin subcutaneously and oral medications with fair response. Your HbA1c is 12.1 and you were found to have elevated cholesterol levels. check your sugar readings 4 times a day, keep the numbers down to review with PCP and research assoc to use insulin Lantus ( long-acting) every morning 20 units To use sliding scale correction insulin lispro with mealtimes 4 times a day As instructed To take metformin twice Daily We advise you to eat healthy, do more exercise and lose weight Follow-up with your PCP within a week , to evaluate the cyst that was drained in the emergency. A referral made to endocrinology clinic to follow-up with Dr. Reynoso
== END 2020-06-27 15:30 | disposition home or self-care (01) | DRG 420 ==
LOC: HO.ED 06-25 04:25 → HO.S3 06-25 11:38
PROVIDERS: Emergency Medicine; Admitting Provider Student in an Organized Health Care Education/Training Program; Emergency Provider Emergency Medicine; Visit Provider Student in an Organized Health Care Education/Training Program
DX: E11.10 Type 2 diabetes mellitus with ketoacidosis without coma (principal); N17.9 Acute kidney failure, unspecified; L05.91 Pilonidal cyst without abscess; I10 Essential (primary) hypertension; E66.01 Morbid (severe) obesity due to excess calories; Z68.41 Body mass index [BMI] 40.0-44.9, adult; Z20.828 Contact with and (suspected) exposure to other viral communicable diseases
CPT/HCPCS: 36415; 80048; 80053; 80061; 81001; 81003; 81025; 82009; 82803; 82947; 83036; 83605; 83690; 85025; 85027; 87040; 87635; 90686; 93005; 96361; 96365; 96375; 99284; 99291; J1650; J2405; J2543